=== PATIENT | male | born 1940 | race Hispanic/Latino ===

== ENCOUNTER 2025-02-12 15:38 | Inpatient (IN) | payer BC, SELFPAY ==
--- NOTE | ~2025-02-12 | XR_ITS ---
EXAMINATION: XR chest 1V portable Exam Date/Time: 02/12/2025 15:50 CDT HISTORY: pre-op Comparison: None. RESULT: Lines, tubes, and devices: None. Lungs and pleura: Mild senescent/emphysematous change, otherwise clear. Cardiomediastinal silhouette: Stable. Other: No acute osseous or upper abdominal finding. IMPRESSION: No acute cardiopulmonary process. Reviewed, dictated and finalized at location K.
--- NOTE | ~2025-02-12 | XR_ITS ---
EXAM: XR foot LT min 3V DATE: 02/12/2025 16:05 HISTORY: Gangrenous toes, 1st 2nd toe. . COMPARISON: None available. FINDINGS: Normal mineralization. No fracture or dislocation. No lytic or blastic lesion. Joint space s are maintained. No erosion or periosteal change. Soft tissue defect over the tip of the great toe. IMPRESSION: No acute osseous finding in the left foot. Reviewed, dictated and finalized at location K.
--- NOTE | ~2025-02-12 | US_ITS ---
EXAMINATION: US venous doppler [facility] DATE: 02/13/2025 21:46 INDICATION: lower extremity edema, pain, and swelling. TECHNIQUE: Grayscale images without and with compression and Doppler images of the bilateral lower ex tremity veins were obtained. COMPARISON: None FINDINGS: Exam limited by significant pain experienced during the examination. The peroneal and posterior tibial veins were noncompressible and no flow was detected. The right comm on femoral vein, profunda (deep) femoral vein, femoral vein, popliteal vein, gastrocnemius vein, and greater saphenous vein are patent. The peroneal and posterior tibial veins are noncompressible and no flow is detected. The left common femoral vein, profunda (deep) femoral vein, femoral vein, popliteal vein,, gastrocnemius vein, and g reater saphenous vein are patent. 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 Incidental note of possible SFA severe stenosis, with tardus parvus waveform in the left popliteal ar naren, and no flow detected in the left posterior tibial artery. Recommend CT angiography of the left lower extremity for further evaluation. Results reported telephonically to Cm Phillips RN by Dr. Morris at 10:14 PM on 02/13/2025. Reviewed, dictated and finalized at location K. 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 Incidental note of possible SFA severe stenosis, with tardus parvus waveform in the left popliteal artery, and no flow detected in the left posterior tibial a rtery. Recommend CT angiography of the left lower extremity for further evaluat ion. Results reported telephonically to Cm Phillips RN by Dr. Morris at 10:14 PM on 02/13/2025.
--- NOTE | ~2025-02-12 | CT_ITS ---
CLINICAL INDICATION: Peripheral arterial disease. COMPARISON: None. TECHNIQUE: Computed tomography angiography (CTA) of the bilateral iliac arteries with left lower extr emity runoff was performed with 100 mL Omnipaque-350 intravenous contrast timed to evaluate the abdom inal aorta, mesenteric and peripheral lower extremity vasculature. Coronal maximum intensity projection 3D-reconstructions were created by the technologist. The dose-length product (DLP) was 462.93 mGy-cm. Automated exposure control and iterative reconstruction technique were employed. FINDINGS/OBSERVATIONS: Gastrointestinal tract: Colonic diverticulosis within the sigmoid colon. Vasculature: The visualized portion of the thoracic aorta is nonaneurysmal. The abdominal aorta is nonaneurysmal without ductal dilatation. The celiac origin is patent and demonstrates conventional anatomy. The superior mesenteric artery is also patent, with only mild atherosclerosis. The bilateral renal arteries are patent, and otherwise unremarkable. The left external iliac artery is patent without calcified atherosclerosis within the pelvis. The left internal iliac artery is diminutive in caliber and demonstrates significant calcified athero sclerotic disease. The left common femoral artery is patent without aneurysmal dilatation or significant stenosis. The left superficial femoral artery and profunda femoral artery are both patent at their origins. The superficial femoral artery is diminutive, and occluded just after its takeoff with multiple colla terals within the proximal and mid thigh. A femoral popliteal bypass graft is identified, without demonstrable flow. Reconstitution distal to the level of the femoral popliteal graft via geniculate collaterals in the k nee and distal thigh. Single vessel runoff is identified within the left calf as the anterior tibial artery which is occluded approximately 10.6 cm above the talus. Reconstitution of the posterior tibial artery at the level of the insertion of the Achilles tendon wh ich provides distal flow into the left foot. Dorsalis pedis is fed through the reconstitution from the superficial system in the medial left calf, into the left foot. Pelvic structures: The bladder is only minimally distended, and otherwise unremarkable. The prostate gland is enlarged and heterogeneous. IMPRESSION: No significant left-sided inflow disease. 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 Single vessel runoff into the left calf with collateralized two-vessel runoff into the left foot. Reviewed, dictated and finalized at location A. IMPRESSION: No significant left-sided inflow disease. 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 Single vessel runoff into the left calf with collateralized two-vessel runoff i nto the left foot.
--- NOTE | 2025-02-12 15:47 | ECG_ITS ---
Test Date: 2025-02-12 16:33:14 Measurements Intervals [place] Rate: 79 P: 54 OH: 177 QRS: -8 QRSD: 90 T: 16 QT: 339 QTc: 391 Interpretive Statements SINUS RHYTHM EARLY PRECORDIAL R/S TRANSITION BORDERLINE T WAVE ABNORMALITY- INFERIOR LEADS BASELINE ARTIFACT- I, II, III, AVR, AVL, AVF, V1-V6 BORDERLINE ECG No previous ECG available for comparison Electronically Signed On 02-12-2025 19:50:21 CDT by Bill Feliciano D.O.
[2025-02-12 16:08] VITALS: BP 159/62; PULSE 80; RESP 14; TEMP 36.7; O2SAT 100
--- NOTE | 2025-02-12 16:26 | ED_ITS ---
HPI - General Adult General Chief complaint: Wound/Laceration Stated complaint: Left toe pain Time Seen by Provider: 02/12/25 15:42 History of Present Illness HPI narrative: This is an 85-year-old insulin-dependent diabetic Monegasque-speaking male presenting toe pain. Patient says that his great toe nail was ripped off about a month ago. Since then it has become more more painful. It is now black and purulent with discoloration going up with his foot. He denies any other complaints such as fevers chills nausea vomiting diarrhea. He has been taking his insulin as directed. Related Data Allergies Allergy/AdvReac Type Severity Reaction Status Date / Time No Known Allergies Allergy Verified 02/12/25 16:06 Exam 2 Narrative: APPEARANCE: No apparent distress. Head: atraumatic. EYES: EOMI, NOSE: Atraumatic NECK: Trachea midline RESPIRATORY: No increased rate of breathing clear to auscultation CARDIOVASCULAR: RRR, no peripheral edema ABDOMINAL: Non-distended MUSCULOSKELETAl: No obvious deformities NEURO: Alert. Moving 4/4 extremities SKIN:: Gangrenous necrotic tissue in between the 1st and 2nd toe of the left foot. Discoloration reaching up to mid foot. PSYCHIATRIC: Normal affect Course Vital Signs Vital signs: Vital Signs Temperature 98.1 F 02/12/25 16:08 Pulse Rate 80 02/12/25 16:08 Respiratory Rate 14 02/12/25 16:08 Blood Pressure 159/62 H 02/12/25 16:08 Pulse Oximetry 100 02/12/25 16:08 Temperature 98.1 F 02/12/25 16:08 Pulse Rate 80 02/12/25 16:08 Respiratory Rate 14 02/12/25 16:08 Blood Pressure 159/62 H 02/12/25 16:08 Pulse Oximetry 100 02/12/25 16:08 Medical Decision Making [facility] Narrative Medical decision making narrative: -Course: 85-year-old male infected with diabetic foot ulcer. Started on antibiotics. Given fluid resuscitation. Lab work and cultures obtained. Patient be admitted for management of his diabetic foot ulcer. -DDX includes but is not limited to: Sepsis gangrene osteomyelitis -Co-morbidities complicating care: Insulin-dependent diabetes Vital Signs Vital Signs: Vital Signs Temperature 98.1 F 02/12/25 16:08 Pulse Rate 80 02/12/25 16:08 Respiratory Rate 14 02/12/25 16:08 Blood Pressure 159/62 H 02/12/25 16:08 Pulse Oximetry 100 02/12/25 16:08 Temperature 98.1 F 02/12/25 16:08 Pulse Rate 80 02/12/25 16:08 Respiratory Rate 14 02/12/25 16:08 Blood Pressure 159/62 H 02/12/25 16:08 Pulse Oximetry 100 02/12/25 16:08 Lab Data 02/12/25 16:21 02/12/25 16:21 Labs: Lab Results 02/12/25 02/12/25 02/12/25 Range/Units 16:11 16:21 16:21 WBC 10.2 H (4.5-10.0) K/mm3 RBC 3.95 L (4.6-6.20) M/mm3 Hgb 11.6 L (14.0-18.0) g/dL Hct 35.9 L (42.0-52.0) % MCV 90.9 (80-100) fl MCH 29.4 (26-34) pg MCHC 32.3 (32-36) g/dl RDW 13.1 (11.5-14.5) % Plt Count 338 (150-375) k/mm3 MPV 8.4 (7.4-10.4) fl Immature Gran % (Auto) 0.4 (0-0.5) % Neut % (Auto) 71.0 (45.5-73.1) % Lymph % (Auto) 15.8 L (18.3-44.2) % [place] % (Auto) 7.3 (2.6-8.5) % Eos % (Auto) 5.0 H (0-4.4) % Baso % (Auto) 0.5 (0.2-1.2) % Lymph # (Auto) 1.61 (0.9-3.2) K/mm3 [place] # (Auto) 0.7 H (0.1-0.6) K/mm3 Eos # (Auto) 0.5 H (0-0.3) K/mm3 Baso # (Auto) 0.1 (0.0-0.1) K/mm3 Abs Immat Gran (auto) 0.04 H (0.00-0.031) K/mm3 Absolute Neuts (auto) 7.2 H (1.3-6.7) K/mm3 Absolute Nucleated RBC 0.000 (0.0-0.012) K/mm3 Nucleated RBC % 0.0 (0.0-0.2) % PT 14.9 H (11.1-14.7) Seconds INR 1.2 APTT 40.4 H (22.3-36.8) Seconds Sodium 138 (137-145) mmol/L Potassium 4.5 (3.4-5.0) mmol/L Chloride 105 (98-107) mmol/L Carbon Dioxide 24 (22-30) mmol/L Anion Gap 9 (4-12) mmol/L BUN 22 H (9-20) mg/dL Creatinine 1.13 (0.7-1.3) mg/dL Estim Creat Clear Calc 41 ml/min Estimated GFR > 60 (59 - ) Glucose 146 H (65-110) mg/dL POC Capillary Glucose 168 H (65-105) mg/dl Lactic Acid 0.9 (0.7-2.0) mmol/L Calcium 8.7 (8.4-10.2) mg/dL Magnesium 2.2 Cancelled (1.6-2.3) mg/dL Total Bilirubin 0.3 (0.2-1.3) mg/dL AST 25 (17-59) U/L ALT 23 (6-50) U/L Alkaline Phosphatase 80 (38-126) U/L C-Reactive Protein 5.1 H (<1.0) mg/dL Total Protein 7.8 (6.3-8.2) g/dL Albumin 3.6 (3.5-5.1) g/dL Urine Color (Yellow) Urine Appearance (Clear) Urine pH (5.0-9.0) Ur Specific [place] (1.001-1.035) Urine Protein (Negative) mg/dL Urine Glucose (UA) (Negative) mg/dL Urine Ketones (Negative) mg/dL Ur Blood (Man) (Negative) Urine Nitrate (Negative) Urine Bilirubin (Negative) Urine Urobilinogen (<2.0) mg/dL Leukocyte Esterase Rfl (Negative) WILD/UL Influenza A (RT-PCR) Influenza B (RT-PCR) RSV (RT-PCR) SARS-CoV-2 RNA (RT-PCR) 02/12/25 02/12/25 Range/Units 16:44 16:47 WBC (4.5-10.0) K/mm3 RBC (4.6-6.20) M/mm3 Hgb (14.0-18.0) g/dL Hct (42.0-52.0) % MCV (80-100) fl MCH (26-34) pg MCHC (32-36) g/dl RDW (11.5-14.5) % Plt Count (150-375) k/mm3 MPV (7.4-10.4) fl Immature Gran % (Auto) (0-0.5) % Neut % (Auto) (45.5-73.1) % Lymph % (Auto) (18.3-44.2) % [place] % (Auto) (2.6-8.5) % Eos % (Auto) (0-4.4) % Baso % (Auto) (0.2-1.2) % Lymph # (Auto) (0.9-3.2) K/mm3 [place] # (Auto) (0.1-0.6) K/mm3 Eos # (Auto) (0-0.3) K/mm3 Baso # (Auto) (0.0-0.1) K/mm3 Abs Immat Gran (auto) (0.00-0.031) K/mm3 Absolute Neuts (auto) (1.3-6.7) K/mm3 Absolute Nucleated RBC (0.0-0.012) K/mm3 Nucleated RBC % (0.0-0.2) % PT (11.1-14.7) Seconds INR APTT (22.3-36.8) Seconds Sodium (137-145) mmol/L Potassium (3.4-5.0) mmol/L Chloride (98-107) mmol/L Carbon Dioxide (22-30) mmol/L Anion Gap (4-12) mmol/L BUN (9-20) mg/dL Creatinine (0.7-1.3) mg/dL Estim Creat Clear Calc ml/min Estimated GFR (59 - ) Glucose (65-110) mg/dL POC Capillary Glucose (65-105) mg/dl Lactic Acid (0.7-2.0) mmol/L Calcium (8.4-10.2) mg/dL Magnesium (1.6-2.3) mg/dL Total Bilirubin (0.2-1.3) mg/dL AST (17-59) U/L ALT (6-50) U/L Alkaline Phosphatase (38-126) U/L C-Reactive Protein (<1.0) mg/dL Total Protein (6.3-8.2) g/dL Albumin (3.5-5.1) g/dL Urine Color Yellow (Yellow) Urine Appearance Clear (Clear) Urine pH 6.5 (5.0-9.0) Ur Specific [place] 1.018 (1.001-1.035) Urine Protein Negative (Negative) mg/dL Urine Glucose (UA) 3+ H (Negative) mg/dL Urine Ketones Negative (Negative) mg/dL Ur Blood (Man) Negative (Negative) Urine Nitrate Negative (Negative) Urine Bilirubin Negative (Negative) Urine Urobilinogen 1.0 (<2.0) mg/dL Leukocyte Esterase Rfl Negative (Negative) WILD/UL Influenza A (RT-PCR) Pending Influenza B (RT-PCR) Pending RSV (RT-PCR) Pending SARS-CoV-2 RNA (RT-PCR) Pending Critical Care Time Critical Care Time Critical Care Time: Yes Total Critical Care Time: 35 Discharge Plan Discharge Clinical Impression: Diabetic foot ulcer Patient Disposition: Home Condition: Stable Instructions: Antibiotic Form Patient Language: Kyrgyz Follow-up/Referrals: Marvin Hill MD [Primary Care Provider] -
[2025-02-12 16:36] LABS: Hematocrit 35.9 % (42.0-52.0); Hemoglobin 11.6 g/dL (14.0-18.0); Immature Granulocyte Percent A 0.4 % (0-0.5); Lymphocytes Absolute Auto 1.61 K/mm3 (0.9-3.2); Mean Corpuscular HGB Conc 32.3 g/dl (32-36); Mean Corpuscular Hemoglobin 29.4 pg (26-34); Mean Corpuscular Volume 90.9 fl (80-100); Nucleated Red Blood Cells Absolute Auto 0.000 K/mm3 (0.0-0.012); Nucleated Red Blood Cells Perc 0.0 % (0.0-0.2); Platelet Count Result 338 k/mm3 (150-375); Red Blood Count 3.95 M/mm3 (4.6-6.20); White Blood Count 10.2 K/mm3 (4.5-10.0)
[2025-02-12 16:47] LABS: INR 1.2; Prothrombin Time 14.9 Seconds (11.1-14.7)
[2025-02-12 16:48] LABS: Partial Thromboplastin Time 40.4 Seconds (22.3-36.8)
[2025-02-12 16:49] LABS: Alanine Aminotransferase 23 U/L (6-50); Albumin Level 3.6 g/dL (3.5-5.1); Alkaline Phosphatase 80 U/L (38-126); Anion Gap 9 mmol/L (4-12); Aspartate Amino Transferase 25 U/L (17-59); Bilirubin,Total 0.3 mg/dL (0.2-1.3); Blood Urea Nitrogen 22 mg/dL (9-20); Calcium 8.7 mg/dL (8.4-10.2); Carbon Dioxide 24 mmol/L (22-30); Chloride 105 mmol/L (98-107); Estimated CRCL calculation 41 ml/min; Estimated Glomerular Filt Rate > 60; Glucose 146 mg/dL (65-110); Magnesium 2.2 mg/dL (1.6-2.3); Potassium 4.5 mmol/L (3.4-5.0); Sodium 138 mmol/L (137-145); Total Protein 7.8 g/dL (6.3-8.2)
[2025-02-12 16:51] LABS: CRP 5.1 mg/dL (<1.0)
[2025-02-12] MEDS: LACTATED RINGERS 1,000 ML 999 ML IV CONT ×2 (16:55)
[2025-02-12] MEDS: CEFEPIME 2 GM/NS 50 ML 2 GM/50 ML BAG IVPB (16:56)
[2025-02-12 16:59] LABS: Add Urine Microscopic? NO; Appearance Urine Clear (Clear); Glucose Urine UA 3+ mg/dL (Negative); Leukocyte Esterase Ur Negative LEU/UL (Negative); Nitrate Urine Negative (Negative); Specific Grav Ur 1.018 (1.001-1.035)
[2025-02-12] MEDS: metroNIDAZOLE 500 MG/ISO 100ML 500 MG/100 ML BAG 100 MG IVPB ×2 (17:25→23:07)
[2025-02-12 17:34] VITALS: BP 148/60; PULSE 78; RESP 14; O2SAT 100
[2025-02-12 17:46] LABS: Influenza A QL RT-PCR Negative (Negative); Influenza B QL RT-PCR Negative (Negative); RSV RNA, RT-PCR Negative (Negative); SARS-CoV-2 RNA PCR Negative (Negative)
[2025-02-12] MEDS: VANCOMYCIN 1,750 MG/NS 500 ML BAG 250 MG IVPB (17:50)
[2025-02-12 18:00] VITALS: BP 142/63; PULSE 78; RESP 15; O2SAT 100
--- NOTE | 2025-02-12 18:45 | PC.NURSE ---
Attempted to call floor for questions about pt before transfer to [facility]. RN not available. This RN let them know they can call back with any questions. ED charge made aware.
--- NOTE | 2025-02-12 19:27 | PM.IMHP ---
H&P: HPI History of Present Illness Date/Time: 02/12/25 21:27 Chief Complaint: Left foot wound, diabetic gangrene Narrative: This is an 85-year-old male patient with a history of diabetes hypertension hyperlipidemia who lives at home with family is admitted to the hospital for necrotic left great toe with gangrenous diabetic foot infection. Patient reports that about a month ago he tried to remove part of the toenail and since then he has had increased swelling pain and eventually color change that has continued to worsen steadily. Patient reported to nursing staff that blood sugar has been under control. Patient and family are not aware of what medications patient takes but he reportedly gets a pill for hypertension, a pill for hyperlipidemia, and a pill for diabetes at [facility] in [place]. No one knows the name or dosage of the medications. Lab work shows white blood cell count of 10.2, CRP 5.1, ESR 97 and procalcitonin 0.1. Hemoglobin A1c was 6.4 and creatinine clearance of 41 with estimated GFR greater than 60. Patient has no prior labs on file for comparison. Blood cultures have been drawn and are pending. Patient was initiated on cefepime Flagyl and vancomycin in the emergency department which will be continued. General surgery was consulted by the emergency department, Dr. Arreola will see patient tomorrow. Expect patient to go to OR for partial or full left foot amputation. Poor vascular flow likely due to history of DM, HTN and HLD. Exam and HPI completed with solution sales senior executive on the mobile device screen during entirety of visit. No family present at time I saw patient. Review of Systems Review of Systems: All systems reviewed & are unremarkable except as noted in HPI and below [facility] Past Medical History Medical History education faculty member needed Insulin dependent diabetes mellitus HLD (hyperlipidemia) HTN (hypertension) Social History Social History Smoking status: Never smoker Second hand tobacco smoke exposure: No Alcohol intake: never Substance use: never Substance use type: does not use Do You Feel Safe in your Home?: Yes Lack of Transportation: No Lack of Food: Sometimes True Current Housing: I Have Housing Concerned About Future Housing: No Difficulty Paying Gas/Electric Bills: No Difficulty Paying for Meds: No Currently Unemployed: No Education: High School Diploma/GED Difficulty w/ Childcare or Family Care: No Spiritual care concerns: No Meds Home Medications and Allergies Allergies Allergy/AdvReac Type Severity Reaction Status Date / Time No Known Allergies Allergy Verified 02/12/25 16:06 Vital Signs Vital Signs - 24 hr 02/12/25 16:08 02/12/25 17:34 02/12/25 18:00 Temperature 36.7 C Pulse Rate 80 78 78 Respiratory Rate 14 14 15 Blood Pressure 159/62 H 148/60 H 142/63 H Pulse Oximetry 100 100 100 Exam Narrative: GENERAL: Awake alert oriented, appears stated age, no acute distress HEAD: Normocephalic, atraumatic. ENT:? Mucous membranes moist. CHEST: Clear to auscultation.? No respiratory distress. HEART: Regular rate and rhythm. ? Normal radial pulses. ABDOMEN: Soft, nontender, nondistended. EXTREMITIES: Bilateral feet with erythema and mild swelling, left great toe black and necrotic with green gangrenous exudate between the great toe and 2nd toe SKIN: Warm dry normal color NEURO: Alert and oriented x3. Responds appropriately via petroleum blending plant operator, follows commands, no motor deficits evident H&P: Results Labs Labs: Short CBC 02/12/25 Range/Units 16:21 WBC 10.2 H (4.5-10.0) K/mm3 Hgb 11.6 L (14.0-18.0) g/dL Hct 35.9 L (42.0-52.0) % Plt Count 338 (150-375) k/mm3 BMP 02/12/25 16:21 Sodium 138 Potassium 4.5 Chloride 105 Carbon Dioxide 24 BUN 22 H Creatinine 1.13 Glucose 146 H Calcium 8.7 Liver Function 02/12/25 Range/Units 16:21 Total Bilirubin 0.3 (0.2-1.3) mg/dL AST 25 (17-59) U/L ALT 23 (6-50) U/L Alkaline Phosphatase 80 (38-126) U/L Albumin 3.6 (3.5-5.1) g/dL Urine 02/12/25 Range/Units 16:47 Urine Color Yellow (Yellow) Urine Appearance Clear (Clear) Urine pH 6.5 (5.0-9.0) Ur Specific [place] 1.018 (1.001-1.035) Urine Protein Negative (Negative) mg/dL Urine Glucose (UA) 3+ H (Negative) mg/dL Pulse Oximetry SpO2 results: 100% on room air Attestation: I personally reviewed and interpreted this pulse oximetry as follows: Interpretation: no need for supplemental oxygenation at this time ECG Attestation: I personally reviewed and interpreted this ECG as follows: ECG completion date: 02/12/25 ECG completion time: 16:33 Prior ECG tracings: not available for review Interpretation: Sinus rhythm rate of 79 LA interval 177 QRS duration 90 QTC 391 QRS axis -8? no STEMI Imaging Left foot x-ray: Radiologist's impression: EXAM: XR foot LT min 3V DATE: 02/12/2025 16:05 HISTORY: Gangrenous toes, 1st 2nd toe. . COMPARISON: None available. FINDINGS: Normal mineralization. No fracture or dislocation. No lytic or blastic lesion. Joint spaces are maintained. No erosion or periosteal change. Soft tissue defect over the tip of the great toe. IMPRESSION: No acute osseous finding in the left foot. Reviewed, dictated and finalized at location K. Chest x-ray: Radiologist's impression: EXAMINATION: XR chest 1V portable Exam Date/Time: 02/12/2025 15:50 CDT HISTORY: pre-op Comparison: None. RESULT: Lines, tubes, and devices: None. Lungs and pleura: Mild senescent/emphysematous change, otherwise clear. Cardiomediastinal silhouette: Stable. Other: No acute osseous or upper abdominal finding. IMPRESSION: No acute cardiopulmonary process. Reviewed, dictated and finalized at location K. Assessment and Plan Assessment and plan (1) Diabetic foot ulcer: Qualifiers: Diabetes mellitus type: type 2 Diabetic foot ulcer location: toe Laterality: left Non-pressure ulcer stage: with other severity Qualified Code(s): E11.621 - Type 2 diabetes mellitus with foot ulcer; L97.528 - Non-pressure chronic ulcer of other part of left foot with other specified severity Code(s): E11.621 - Type 2 diabetes mellitus with foot ulcer; L97.509 - Non-pressure chronic ulcer of other part of unspecified foot with unspecified severity Status: Acute Assessment and Plan: -Gangrenous diabetic foot wound from great toenail source with involvement of great toe and space between first and second toes -All toes red and swollen, great toe is black -Patient states worsened foot over past 1 month or so -Surgery consulted, will see on 02/13 -IV cefepime, metronidazole and vancomycin started in ER and will continue -Painful portions of foot wound for patient, pain medication ordered -Anticipate plan to go to OR on 02/13/25 with general surgery -MRI ordered to assess for osteomyelitis nearby as well (2) Insulin dependent diabetes mellitus: Status: Chronic Assessment and Plan: -Ordered A1c and ACHS fingerstick glucose with SSI -Diabetic diet, NPO at midnight for OR on 02/13 -Patient actually on an oral medication rather than insulin, unknown name/dose at this time, gets meds at [facility] (there are two) (3) HTN (hypertension): Code(s): I10 - Essential (primary) hypertension Status: Acute Assessment and Plan: -On unknown medication/unknown dose for HTN, gets meds at [facility] in [place] (4) HLD (hyperlipidemia): Code(s): E78.5 - Hyperlipidemia, unspecified Status: Acute Assessment and Plan: -On unknown medication/unknown dose for HLD, need to call pharmacy to find out for Med Rec purposes (5) education faculty member needed: Code(s): Z75.8 - Other problems related to medical facilities and other health care Status: Acute Assessment and Plan: -Croatian speaking, does not speak/understand more than a few words of Rwandan, petroleum blending plant operator services required -Patient cannot read/write in Rwandan or Croatian Plan -Medication Reconciliation not possible as pharmacy is closed and patient/family do not know what medications he takes -Surgery to see patient on 02/13, anticipate partial foot amputation -MRI ordered but may not be needed, depending on General Surgery plan Quality VTE Prophylaxis VTE prophylaxis: pharmacologic ordered (Heparin) Total time spent on this patient encounter was 112 minutes. Hospitalist [facility] Advance Care Plan I have confirmed that the patient's Advanced Care Plan is present, code status is documented, or surrogate decision maker is listed in patient medical record.: Yes Medication Reconciliation I have utilized all available resources to obtain, update and review the patients current medications (includes all prescriptions, OTC, herbals, cannabis, and nutritional supplements).: No The patient is not eligible for med reconciliation; the patient is in a emergent medical situation where delaying treatment would jeopardize the patients health.: Yes
[2025-02-12 19:50] VITALS: BMI 22.2
[2025-02-12 20:07] LABS: Hemoglobin A1C 6.4 % (<5.7)
[2025-02-12 20:20] VITALS: BP 147/58; PULSE 68; RESP 20; TEMP 36; O2SAT 100
[2025-02-12 20:49] LABS: CRP 4.6 mg/dL (<1.0)
[2025-02-12 21:01] LABS: Procalcitonin 0.1 ng/mL
[2025-02-12] MEDS: LACTATED RINGERS 1,000 ML 75 ML IV CONT (21:04)
[2025-02-12] MEDS: MORPHINE SULFATE (*CRX) 4 MG/ML INJ IV PUSH (21:38)
[2025-02-13 04:30] VITALS: BP 143/61; PULSE 58; RESP 16; TEMP 36.3; O2SAT 100
[2025-02-13 05:57] LABS: Hematocrit 33.0 % (42.0-52.0); Hemoglobin 10.6 g/dL (14.0-18.0); Immature Granulocyte Percent A 0.4 % (0-0.5); Lymphocytes Absolute Auto 1.43 K/mm3 (0.9-3.2); Mean Corpuscular HGB Conc 32.1 g/dl (32-36); Mean Corpuscular Hemoglobin 29.3 pg (26-34); Mean Corpuscular Volume 91.2 fl (80-100); Nucleated Red Blood Cells Absolute Auto 0.000 K/mm3 (0.0-0.012); Nucleated Red Blood Cells Perc 0.0 % (0.0-0.2); Platelet Count Result 335 k/mm3 (150-375); Red Blood Count 3.62 M/mm3 (4.6-6.20); White Blood Count 9.8 K/mm3 (4.5-10.0)
[2025-02-13] MEDS: CEFEPIME 1 GM/NS 50 ML 1 GM/50 ML BAG IVPB ×2 (06:24→18:10)
[2025-02-13 06:26] LABS: Procalcitonin 0.1 ng/mL
[2025-02-13] MEDS: metroNIDAZOLE 500 MG/ISO 100ML 500 MG/100 ML BAG 100 MG IVPB ×3 (06:30→20:49)
[2025-02-13 06:46] LABS: Alanine Aminotransferase 18 U/L (6-50); Albumin Level 3.3 g/dL (3.5-5.1); Alkaline Phosphatase 64 U/L (38-126); Anion Gap 7 mmol/L (4-12); Aspartate Amino Transferase 19 U/L (17-59); Bilirubin,Total 0.3 mg/dL (0.2-1.3); Blood Urea Nitrogen 17 mg/dL (9-20); CRP 4.3 mg/dL (<1.0); Calcium 8.4 mg/dL (8.4-10.2); Carbon Dioxide 23 mmol/L (22-30); Chloride 107 mmol/L (98-107); Estimated CRCL calculation 47 ml/min; Estimated Glomerular Filt Rate > 60; Glucose 140 mg/dL (65-110); Magnesium 1.9 mg/dL (1.6-2.3); Potassium 4.6 mmol/L (3.4-5.0); Sodium 137 mmol/L (137-145); Total Protein 7.0 g/dL (6.3-8.2)
--- NOTE | 2025-02-13 08:24 | P.PNIM_ITS ---
Progress Note: A&P Assessment and Plan (1) Diabetic foot ulcer: Qualifiers: Diabetes mellitus type: type 2 Diabetic foot ulcer location: toe Laterality: left Non-pressure ulcer stage: with other severity Qualified Code(s): E11.621 - Type 2 diabetes mellitus with foot ulcer; L97.528 - Non- pressure chronic ulcer of other part of left foot with other specified severity Code(s): E11.621 - Type 2 diabetes mellitus with foot ulcer; L97.509 - Non-pressure chronic ulcer of other part of unspecified foot with unspecified severity Status: Acute Assessment and Plan: -Gangrenous diabetic foot wound from great toenail source with involvement of great toe and space between first and second toes -All toes red and swollen, great toe is black -Patient states worsened foot over past 1 month or so -Surgery consulted, will see on 02/13 -IV cefepime, metronidazole and vancomycin started in ER and will continue -Painful portions of foot wound for patient, pain medication ordered -Anticipate plan to go to OR on 02/13/25 with general surgery -MRI ordered to assess for osteomyelitis nearby as well 02/13: - General surgery consulted and possible amputation pending further evaluation with MRI. Maintain NPO at this time. - On vancomycin/cefepime/flagyl - day 2. (2) Insulin dependent diabetes mellitus: Status: Chronic Assessment and Plan: -Ordered A1c and ACHS fingerstick glucose with SSI -Diabetic diet, NPO at midnight for OR on 02/13 -Patient actually on an oral medication rather than insulin, unknown name/dose at this time, gets meds at [facility] (there are two) 02/13: - A1c 6.4. - NPO currently, will change insulin to regular, q6h scheduled sliding scale. (3) HTN (hypertension): Code(s): I10 - Essential (primary) hypertension Status: Acute Assessment and Plan: -On unknown medication/unknown dose for HTN, gets meds at [facility] in [place] 02/13: - Stable 140s/60s - awaiting med rec from outside pharmacy. (4) HLD (hyperlipidemia): Code(s): E78.5 - Hyperlipidemia, unspecified Status: Acute Assessment and Plan: -On unknown medication/unknown dose for HLD, need to call pharmacy to find out for Med Rec purposes 02/13: - Awaiting med rec from outside pharmacy. (5) stripper and taper needed: Code(s): Z75.8 - Other problems related to medical facilities and other health care Status: Acute Assessment and Plan: -Russian speaking, does not speak/understand more than a few words of [place], figure refinisher and repairer services required -Patient cannot read/write in [place] or Russian 02/13: - Strategy Analyst device at bedside, patient able to utilize well. Plan -Medication Reconciliation not possible as pharmacy is closed and patient/family do not know what medications he takes -Surgery to see patient on 02/13, anticipate partial foot amputation -MRI ordered but may not be needed, depending on General Surgery plan 02/13: Susan Elena is n 85 year old male with PMH HTN and DM presenting with one month history of worsening left great toe wound. Appearance of eschar/gangrene on examination and surgery is consulted. - Per nursing, patient uses multiple pharmacies and family will be bringing his actual medications by for review. I have encouraged nursing to also request any POLST forms or POA paperwork that is available. Time Spent With Patient Time with patient: 15 - 25 minutes Subjective Date/time seen: 02/13/25 08:24 Interval history: Utilizing figure refinisher and repairer, visit conducted this am. Susan states pain manageable, not severe. Denies concerns or new complaints. Understands need for surgical consultation. Review of Systems Review of Systems: All systems reviewed & are unremarkable except as noted in HPI and below Exam Narrative: GENERAL APPEARANCE: Appears to be in no acute distress. HEAD: normocephalic atraumatic ENT: Hearing grossly intact, no nasal discharge NECK: Neck supple, trachea midline. CARDIAC: Normal S1/S2. Rhythm is regular. No murmurs, rubs, or gallops. No cyanosis or pallor. Extremities are warm and well perfused. LUNGS: Clear to auscultation without rales, rhonchi, wheezing or diminished breath sounds. Respirations even and unlabored. ABDOMEN: BS positive x 4 quadrants. Soft, nondistended, nontender. No guarding or rebound. PERIPHERAL VASCULAR: +1 blle edema. Lower extremities slightly cool. NEURO: Follows commands. No focal deficits. SKIN: Left great toe with eschar covering the medial surface with drainage from the interdigital space. There is erythema extending to the ankle. Odiferous. PSYCH: Stable, no paranoia or delusional thinking. Objective Data Vital Signs Vital Signs: Vital Signs - 24 hr 02/12/25 16:08 02/12/25 17:34 02/12/25 18:00 Temperature 98.1 F Pulse Rate 80 78 78 Respiratory Rate 14 14 15 Blood Pressure 159/62 H 148/60 H 142/63 H Pulse Oximetry 100 100 100 Oxygen Delivery 02/12/25 20:00 02/12/25 20:20 02/13/25 04:30 Temperature 96.8 F L 97.3 F L Pulse Rate 68 58 L Respiratory Rate 20 16 Blood Pressure 147/58 H 143/61 H Pulse Oximetry 100 100 Oxygen Delivery Room Air Intake/Output Intake/Output: Intake & Output 02/10/25 02/11/25 02/12/25 02/13/25 23:59 23:59 23:59 23:59 Intake Total 2150 400 Output Total 900 Balance 2150 -500 Meds/Results Medications: Active Medications Generic Name Dose Route Start Last Admin Trade Name Freq PRN Reason Stop Dose Admin Acetaminophen 650 mg 02/12/25 21:13 Acetaminophen 325 Mg Tablet PO Q4H PRN Mild Pain (1-3) or Fever Hydrocodone Bitart/Acetaminophen 1 tab 02/12/25 21:13 Hydrocodone/Acetaminophen (*Crx) 5-325 Mg Tablet PO Q4H PRN Pain Rated 4-6 Dextrose 12.5 gm 02/12/25 18:53 Dextrose 50% 25 Gm/50 Ml Syringe IV PUSH PRN PRN Hypoglycemia Protocol Glucagon 1 mg 02/12/25 18:53 Glucagon For Inj 1 Mg Vial IM PRN PRN Hypoglycemia Protocol Glucose 15 gm 02/12/25 18:53 Glucose Oral Gel 15 Gm Of Glucse In 37.5 Gm Tube PO PRN PRN Hypoglycemia Protocol Metronidazole 500 mg in 100 mls @ 100 mls/hr 02/12/25 23:00 02/13/25 06:30 Flagyl 500 Mg/Iso Soln 100 Ml IVPB 100 mls/hr Q8HR BINA Administration Lactated Ringer's 1,000 mls @ 75 mls/hr 02/12/25 17:35 02/12/25 21:04 Lr - Lactated Ringers Iv IV CONT 75 mls/hr .[id number] BINA Administration Dextrose 1,000 mls @ 100 mls/hr 02/12/25 18:53 Dextrose 5% 1,000 Ml IVPB PRN PRN Hypoglycemia Protocol Cefepime HCl 1 gm in 50 mls @ 100 mls/hr 02/13/25 05:00 02/13/25 06:24 Maxipime 1 Gm/Ns 50 Ml IVPB 100 mls/hr Q12H BINA Administration Vancomycin HCl 1,250 mg in 250 mls @ 166.667 mls/hr 02/13/25 18:00 Vancomycin 1,250 Mg/Ns 250 Ml IVPB Q24H BINA Insulin Aspart 2 - 5 units 02/13/25 08:00 Insulin Aspart (*Bkc) 100 Units/Ml SUB-Q TIDWM BINA Protocol Morphine Sulfate 2 mg 02/12/25 21:13 Morphine Sulfate (*Crx) 2 Mg/Ml Inj IV PUSH Q4H PRN Pain Rated 7-10 Radiology Results: ITS Impressions Chest X-Ray 02/12/25 16:16 IMPRESSION: No acute cardiopulmonary process. Foot X-Ray 02/12/25 16:17 IMPRESSION: No acute osseous finding in the left foot. Labs Labs: Laboratory Results - last 24 hr 02/12/25 02/12/25 02/12/25 16:11 16:21 16:21 WBC 10.2 H RBC 3.95 L Hgb 11.6 L Hct 35.9 L MCV 90.9 MCH 29.4 MCHC 32.3 RDW 13.1 Plt Count 338 MPV 8.4 Immature Gran % (Auto) 0.4 Neut % (Auto) 71.0 Lymph % (Auto) 15.8 L [place] % (Auto) 7.3 Eos % (Auto) 5.0 H Baso % (Auto) 0.5 Lymph # (Auto) 1.61 [place] # (Auto) 0.7 H Eos # (Auto) 0.5 H Baso # (Auto) 0.1 Abs Immat Gran (auto) 0.04 H Absolute Neuts (auto) 7.2 H Absolute Nucleated RBC 0.000 Nucleated RBC % 0.0 ESR 97 H PT 14.9 H INR 1.2 APTT 40.4 H Sodium 138 Potassium 4.5 Chloride 105 Carbon Dioxide 24 Anion Gap 9 BUN 22 H Creatinine 1.13 Estim Creat Clear Calc 41 Estimated GFR > 60 Glucose 146 H POC Capillary Glucose 168 H Hemoglobin A1c 6.4 H Lactic Acid 0.9 Calcium 8.7 Phosphorus Magnesium 2.2 Cancelled Total Bilirubin 0.3 AST 25 ALT 23 Alkaline Phosphatase 80 C-Reactive Protein 5.1 H Total Protein 7.8 Albumin 3.6 Procalcitonin Urine Color Urine Appearance Urine pH Ur Specific [place] Urine Protein Urine Glucose (UA) Urine Ketones Ur Blood (Man) Urine Nitrate Urine Bilirubin Urine Urobilinogen Leukocyte Esterase Rfl Influenza A (RT-PCR) Influenza B (RT-PCR) RSV (RT-PCR) SARS-CoV-2 RNA (RT-PCR) 02/12/25 02/12/25 02/12/25 16:44 16:47 20:16 WBC RBC Hgb Hct MCV MCH MCHC RDW Plt Count MPV Immature Gran % (Auto) Neut % (Auto) Lymph % (Auto) [place] % (Auto) Eos % (Auto) Baso % (Auto) Lymph # (Auto) [place] # (Auto) Eos # (Auto) Baso # (Auto) Abs Immat Gran (auto) Absolute Neuts (auto) Absolute Nucleated RBC Nucleated RBC % ESR PT INR APTT Sodium Potassium Chloride Carbon Dioxide Anion Gap BUN Creatinine Estim Creat Clear Calc Estimated GFR Glucose POC Capillary Glucose Hemoglobin A1c Lactic Acid Calcium Phosphorus Magnesium Total Bilirubin AST ALT Alkaline Phosphatase C-Reactive Protein 4.6 H Total Protein Albumin Procalcitonin 0.1 Urine Color Yellow Urine Appearance Clear Urine pH 6.5 Ur Specific [place] 1.018 Urine Protein Negative Urine Glucose (UA) 3+ H Urine Ketones Negative Ur Blood (Man) Negative Urine Nitrate Negative Urine Bilirubin Negative Urine Urobilinogen 1.0 Leukocyte Esterase Rfl Negative Influenza A (RT-PCR) Negative Influenza B (RT-PCR) Negative RSV (RT-PCR) Negative SARS-CoV-2 RNA (RT-PCR) Negative 02/12/25 02/13/25 02/13/25 20:20 05:35 07:45 WBC 9.8 RBC 3.62 L Hgb 10.6 L Hct 33.0 L MCV 91.2 MCH 29.3 MCHC 32.1 RDW 13.2 Plt Count 335 MPV 8.5 Immature Gran % (Auto) 0.4 Neut % (Auto) 71.2 Lymph % (Auto) 14.6 L [place] % (Auto) 8.6 H Eos % (Auto) 4.4 Baso % (Auto) 0.8 Lymph # (Auto) 1.43 [place] # (Auto) 0.8 H Eos # (Auto) 0.4 H Baso # (Auto) 0.1 Abs Immat Gran (auto) 0.04 H Absolute Neuts (auto) 7.0 H Absolute Nucleated RBC 0.000 Nucleated RBC % 0.0 ESR 79 H PT INR APTT Sodium 137 Potassium 4.6 Chloride 107 Carbon Dioxide 23 Anion Gap 7 BUN 17 Creatinine 0.98 Estim Creat Clear Calc 47 Estimated GFR > 60 Glucose 140 H POC Capillary Glucose 98 102 Hemoglobin A1c Lactic Acid Calcium 8.4 Phosphorus 2.9 Magnesium 1.9 Total Bilirubin 0.3 AST 19 ALT 18 Alkaline Phosphatase 64 C-Reactive Protein 4.3 H Total Protein 7.0 Albumin 3.3 L Procalcitonin 0.1 Urine Color Urine Appearance Urine pH Ur Specific [place] Urine Protein Urine Glucose (UA) Urine Ketones Ur Blood (Man) Urine Nitrate Urine Bilirubin Urine Urobilinogen Leukocyte Esterase Rfl Influenza A (RT-PCR) Influenza B (RT-PCR) RSV (RT-PCR) SARS-CoV-2 RNA (RT-PCR) Imaging Radiologist's impression: EXAMINATION: XR chest 1V portable IMPRESSION: No acute cardiopulmonary process. EXAM: XR foot LT min 3V IMPRESSION: No acute osseous finding in the left foot. Quality VTE Prophylaxis VTE prophylaxis: pharmacologic ordered If No VTE Prophylaxis Answer both mechanical and pharmacologic: Reason no mechanical VTE proph: medical contraindication (Concerned for vascular compromise contributing to wounds. ) Hospitalist MIPS Advance Care Plan I have confirmed that the patient's Advanced Care Plan is present, code status is documented, or surrogate decision maker is listed in patient medical record.: Yes Medication Reconciliation I have utilized all available resources to obtain, update and review the patients current medications (includes all prescriptions, OTC, herbals, c annabis, and nutritional supplements).: Yes
--- NOTE | 2025-02-13 09:46 | PM.CNGS ---
Assessment and Plan Assessment and plan (1) HTN (hypertension): Code(s): I10 - Essential (primary) hypertension Status: Acute Assessment and Plan: Manage per hospitalist recs. (2) Diabetic foot ulcer: Qualifiers: Diabetes mellitus type: type 2 Diabetic foot ulcer location: toe Laterality: left Non-pressure ulcer stage: with other severity Qualified Code(s): E11.621 - Type 2 diabetes mellitus with foot ulcer; L97.528 - Non-pressure chronic ulcer of other part of left foot with other specified severity Code(s): E11.621 - Type 2 diabetes mellitus with foot ulcer; L97.509 - Non-pressure chronic ulcer of other part of unspecified foot with unspecified severity Status: Acute Assessment and Plan: Patient presented with left great toe ulcer that first started a month ago when a piece of his toenail was ripped off. Since this time the wound has become increasingly more infected. Upon exam dry and wet gangrene is present to a majority of the toe. Purulence drainage from 1st interdigital space. WBC 9.8. Foot x-ray insignificant, however physical exam is very suspicious for osteomyelitis. MRI ordered. Possibility of toe amputation versus I and D discussed with patient. Follow-up with results from foot MRI. Consider toe amputation/I&D today or tomorrow pending results. Patient should remain NPO. Will discuss with surgeon. Continue vancomycin, cefepime, Flagyl. Blood cultures pending. Cover toe in gauze and wrap with Kerlix for time being. (3) Insulin dependent diabetes mellitus: Status: Chronic Assessment and Plan: Continue management per hospitalist. History of Present Illness Consult details Consult date: 02/13/25 Reason for consult: other (diabetic foot wound, osteomyelitis) Requesting physician: Gelacio Catherine MD Narrative: Patient is an 85-year-old Turkish-speaking male with history of insulin-dependent diabetes mellitus and hypertension who we have been asked to see in surgical consultation for left foot wound and concern for osteomyelitis. Patient states he 1st noticed the wound about a month ago when his left great toe was ?loose? and he pulled off a piece of it. He states that the other piece of the nail remained attached to his toe. This past week patient has noted increased pain to his foot, which led him to seek evaluation in the emergency department. Patient reports wearing open-toed sandals. He is able to ambulate independently, but says he has to be very careful with the toe. He is unsure if he has neuropathy, but states all of his toes feel numb. He denies ever having anything like this the past. He states that he tried an alcohol based cleanser that he can not recall the name of, but that it caused the wound to bubble. Patient follows with a PCP and states that he was scheduled for a regular checkup today. Upon admission to the ED, patient's WBC count is 10.2, now down to 9.8. Blood glucose in the 140s. Plain films of the left foot showed no acute osseous findings. MRI of foot ordered to rule out osteomyelitis. [facility] Past Medical History Medical History cook jelly needed Insulin dependent diabetes mellitus HLD (hyperlipidemia) HTN (hypertension) Social History Social History Smoking status: Never smoker Second hand tobacco smoke exposure: No Alcohol intake: never Substance use: never Substance use type: does not use Do You Feel Safe in your Home?: Yes Lack of Transportation: No Lack of Food: Sometimes True Current Housing: I Have Housing Concerned About Future Housing: No Difficulty Paying Gas/Electric Bills: No Difficulty Paying for Meds: No Currently Unemployed: No Education: High School Diploma/GED Difficulty w/ Childcare or Family Care: No Spiritual care concerns: No Meds Home Medications and Allergies Allergies Allergy/AdvReac Type Severity Reaction Status Date / Time No Known Allergies Allergy Verified 02/12/25 16:06 Vital Signs Vital Signs - 24 hr 02/12/25 16:08 02/12/25 17:34 02/12/25 18:00 Temperature 98.1 F Pulse Rate 80 78 78 Respiratory Rate 14 14 15 Blood Pressure 159/62 H 148/60 H 142/63 H Pulse Oximetry 100 100 100 Oxygen Delivery 02/12/25 20:00 02/12/25 20:20 02/13/25 04:30 Temperature 96.8 F L 97.3 F L Pulse Rate 68 58 L Respiratory Rate 20 16 Blood Pressure 147/58 H 143/61 H Pulse Oximetry 100 100 Oxygen Delivery Room Air Exam Const: General: comfortable and no acute distress Eyes: General: appearance normal, both eyes and all related structures Neck: Neck: supple Resp: Effort & Inspection: normal respiratory effort Cardio: Rate: regular rate Skin: General skin exam: normal color and no rashes or lesions noted Neuro: Speech: normal speech Extrem: Other: Left great toe with extensive wet and dry gangrene. Dry black eschar covering roughly 3/4 of the toe circumferentially to medial aspect. Wound extends into 1st interdigital space with wet purulent drainage present. All remaining toes viable. Edema and erythema present throughout foot and extending into the ankle. Patient notes tenderness to palpation of foot and pain with wash rag exfoliation of the wound. DP and PT pulses very faint. Patient has difficulty with wiggling all toes. Foul odor noted. Right foot and lower leg also has significant edema. Patient notes that he 1st noticed the swelling about a week ago. He is able to move all of these toes. Sensation is decreased. Psych: Mental Status: mental status grossly normal Results Labs 02/13/25 05:35 02/13/25 05:35 Labs: Abnormal lab results 02/12/25 02/12/25 02/12/25 Range/Units 16:11 16:21 16:47 WBC 10.2 H (4.5-10.0) K/mm3 RBC 3.95 L (4.6-6.20) M/mm3 Hgb 11.6 L (14.0-18.0) g/dL Hct 35.9 L (42.0-52.0) % Lymph % (Auto) 15.8 L (18.3-44.2) % [place] % (Auto) (2.6-8.5) % Eos % (Auto) 5.0 H (0-4.4) % [place] # (Auto) 0.7 H (0.1-0.6) K/mm3 Eos # (Auto) 0.5 H (0-0.3) K/mm3 Abs Immat Gran (auto) 0.04 H (0.00-0.031) K/mm3 Absolute Neuts (auto) 7.2 H (1.3-6.7) K/mm3 ESR 97 H (0-20) mm/hr PT 14.9 H (11.1-14.7) Seconds APTT 40.4 H (22.3-36.8) Seconds BUN 22 H (9-20) mg/dL Glucose 146 H (65-110) mg/dL POC Capillary Glucose 168 H (65-105) mg/dl Hemoglobin A1c 6.4 H (<5.7) % C-Reactive Protein 5.1 H (<1.0) mg/dL Albumin (3.5-5.1) g/dL Urine Glucose (UA) 3+ H (Negative) mg/dL 02/12/25 02/13/25 Range/Units 20:16 05:35 WBC (4.5-10.0) K/mm3 RBC 3.62 L (4.6-6.20) M/mm3 Hgb 10.6 L (14.0-18.0) g/dL Hct 33.0 L (42.0-52.0) % Lymph % (Auto) 14.6 L (18.3-44.2) % [place] % (Auto) 8.6 H (2.6-8.5) % Eos % (Auto) (0-4.4) % [place] # (Auto) 0.8 H (0.1-0.6) K/mm3 Eos # (Auto) 0.4 H (0-0.3) K/mm3 Abs Immat Gran (auto) 0.04 H (0.00-0.031) K/mm3 Absolute Neuts (auto) 7.0 H (1.3-6.7) K/mm3 ESR 79 H (0-20) mm/hr PT (11.1-14.7) Seconds APTT (22.3-36.8) Seconds BUN (9-20) mg/dL Glucose 140 H (65-110) mg/dL POC Capillary Glucose (65-105) mg/dl Hemoglobin A1c (<5.7) % C-Reactive Protein 4.6 H 4.3 H (<1.0) mg/dL Albumin 3.3 L (3.5-5.1) g/dL Urine Glucose (UA) (Negative) mg/dL Diabetes panel 02/12/25 02/13/25 Range/Units 16:21 05:35 Sodium 138 137 (137-145) mmol/L Potassium 4.5 4.6 (3.4-5.0) mmol/L Chloride 105 107 (98-107) mmol/L Carbon Dioxide 24 23 (22-30) mmol/L BUN 22 H 17 (9-20) mg/dL Creatinine 1.13 0.98 (0.7-1.3) mg/dL Glucose 146 H 140 H (65-110) mg/dL Hemoglobin A1c 6.4 H (<5.7) % Calcium 8.7 8.4 (8.4-10.2) mg/dL AST 25 19 (17-59) U/L ALT 23 18 (6-50) U/L Alkaline Phosphatase 80 64 (38-126) U/L Total Protein 7.8 7.0 (6.3-8.2) g/dL Albumin 3.6 3.3 L (3.5-5.1) g/dL Calcium panel 02/12/25 02/13/25 Range/Units 16:21 05:35 Calcium 8.7 8.4 (8.4-10.2) mg/dL Phosphorus 2.9 (2.5-4.5) mg/dL Albumin 3.6 3.3 L (3.5-5.1) g/dL Pituitary panel 02/12/25 02/13/25 Range/Units 16:21 05:35 Sodium 138 137 (137-145) mmol/L Potassium 4.5 4.6 (3.4-5.0) mmol/L Chloride 105 107 (98-107) mmol/L Carbon Dioxide 24 23 (22-30) mmol/L BUN 22 H 17 (9-20) mg/dL Creatinine 1.13 0.98 (0.7-1.3) mg/dL Glucose 146 H 140 H (65-110) mg/dL Calcium 8.7 8.4 (8.4-10.2) mg/dL Adrenal panel 02/12/25 02/13/25 Range/Units 16:21 05:35 Sodium 138 137 (137-145) mmol/L Potassium 4.5 4.6 (3.4-5.0) mmol/L Chloride 105 107 (98-107) mmol/L Carbon Dioxide 24 23 (22-30) mmol/L BUN 22 H 17 (9-20) mg/dL Creatinine 1.13 0.98 (0.7-1.3) mg/dL Glucose 146 H 140 H (65-110) mg/dL Calcium 8.7 8.4 (8.4-10.2) mg/dL Total Bilirubin 0.3 0.3 (0.2-1.3) mg/dL AST 25 19 (17-59) U/L ALT 23 18 (6-50) U/L Alkaline Phosphatase 80 64 (38-126) U/L Total Protein 7.8 7.0 (6.3-8.2) g/dL Albumin 3.6 3.3 L (3.5-5.1) g/dL All other labs normal.
[2025-02-13 14:00] VITALS: BP 152/61; PULSE 67; RESP 16; TEMP 36.4; O2SAT 100
[2025-02-13] MEDS: HYDROcodone/acetaminophen (*CRX) 5-325 MG TABLET 1 TAB PO (14:32)
[2025-02-13] MEDS: [UNRECOGNIZED DRUG - REMARK] XX (14:33)
--- NOTE | 2025-02-13 18:42 | PC.NURSE ---
Pt has egyptian speaking family members. Family members notified twice today to bring in home meds so medications can be reconciled and ordered by the hospital provider. Family brought home meds loose in organizer and not pill bottles. Left in room with pt and family no longer present. Will notify to bring the actual bottles. Call placed to contact in chart but no answer.
[2025-02-13] MEDS: VANCOMYCIN 1,250 MG/NS 250 ML 1,250 MG/250 ML BAG 166.67 MG IVPB (19:00)
[2025-02-13 20:23] VITALS: BP 151/68; PULSE 78; RESP 18; TEMP 36.4; O2SAT 98
[2025-02-13] MEDS: MORPHINE SULFATE (*CRX) 2 MG/ML INJ IV PUSH (20:48)
[2025-02-13] MEDS: LACTATED RINGERS 1,000 ML 75 ML IV CONT (20:48)
[2025-02-13] MEDS: SOD HYPOCHLORITE 1/4 STRENGTH 473 ML 1 APPLIC TOPICAL (20:49)
[2025-02-14 04:01] LABS: Hematocrit 36.6 % (42.0-52.0); Hemoglobin 12.0 g/dL (14.0-18.0); Immature Granulocyte Percent A 0.4 % (0-0.5); Lymphocytes Absolute Auto 1.71 K/mm3 (0.9-3.2); Mean Corpuscular HGB Conc 32.8 g/dl (32-36); Mean Corpuscular Hemoglobin 29.6 pg (26-34); Mean Corpuscular Volume 90.4 fl (80-100); Nucleated Red Blood Cells Absolute Auto 0.000 K/mm3 (0.0-0.012); Nucleated Red Blood Cells Perc 0.0 % (0.0-0.2); Platelet Count Result 335 k/mm3 (150-375); Red Blood Count 4.05 M/mm3 (4.6-6.20); White Blood Count 10.6 K/mm3 (4.5-10.0)
[2025-02-14 04:13] LABS: CRP 5.7 mg/dL (<1.0)
[2025-02-14 04:16] LABS: Alanine Aminotransferase 19 U/L (6-50); Albumin Level 3.7 g/dL (3.5-5.1); Alkaline Phosphatase 71 U/L (38-126); Anion Gap 9 mmol/L (4-12); Aspartate Amino Transferase 23 U/L (17-59); Bilirubin,Total 0.5 mg/dL (0.2-1.3); Blood Urea Nitrogen 14 mg/dL (9-20); Calcium 8.9 mg/dL (8.4-10.2); Carbon Dioxide 26 mmol/L (22-30); Chloride 104 mmol/L (98-107); Estimated CRCL calculation 42 ml/min; Estimated Glomerular Filt Rate > 60; Glucose 83 mg/dL (65-110); Magnesium 1.8 mg/dL (1.6-2.3); Potassium 4.2 mmol/L (3.4-5.0); Sodium 139 mmol/L (137-145); Total Protein 7.9 g/dL (6.3-8.2)
[2025-02-14 04:29] LABS: INR 1.3; Prothrombin Time 16.2 Seconds (11.1-14.7)
[2025-02-14 04:30] LABS: Partial Thromboplastin Time 75.2 Seconds (22.3-36.8)
[2025-02-14 04:39] LABS: Procalcitonin 0.2 ng/mL
[2025-02-14] MEDS: HEPARIN SOD/D5W 100 UNITS/ML 25,000 UNITS/250 ML BAG 12 UNITS IV CONT (04:46)
[2025-02-14] MEDS: CEFEPIME 1 GM/NS 50 ML 1 GM/50 ML BAG IVPB ×2 (04:52→16:58)
[2025-02-14 05:28] VITALS: BP 142/59; PULSE 65; RESP 18; TEMP 36.2; O2SAT 100
[2025-02-14] MEDS: metroNIDAZOLE 500 MG/ISO 100ML 500 MG/100 ML BAG 100 MG IVPB ×2 (06:25→14:09)
[2025-02-14 08:00] VITALS: O2SAT 100
--- NOTE | 2025-02-14 08:04 | PM.IMPN ---
Progress Note: A&P Assessment and Plan (1) Diabetic foot ulcer: Qualifiers: Diabetes mellitus type: type 2 Diabetic foot ulcer location: toe Laterality: left Non-pressure ulcer stage: with other severity Qualified Code(s): E11.621 - Type 2 diabetes mellitus with foot ulcer; L97.528 - Non-pressure chronic ulcer of other part of left foot with other specified severity Code(s): E11.621 - Type 2 diabetes mellitus with foot ulcer; L97.509 - Non-pressure chronic ulcer of other part of unspecified foot with unspecified severity Status: Acute Assessment and Plan: -Gangrenous diabetic foot wound from great toenail source with involvement of great toe and space between first and second toes -All toes red and swollen, great toe is black -Patient states worsened foot over past 1 month or so -Surgery consulted, will see on 02/13 -IV cefepime, metronidazole and vancomycin started in ER and will continue -Painful portions of foot wound for patient, pain medication ordered -Anticipate plan to go to OR on 02/13/25 with general surgery -MRI ordered to assess for osteomyelitis nearby as well 02/13: - General surgery consulted and possible amputation pending further evaluation with MRI. Maintain NPO at this time. - On vancomycin/cefepime/flagyl - day 2. (2) Insulin dependent diabetes mellitus: Status: Chronic Assessment and Plan: -Ordered A1c and ACHS fingerstick glucose with SSI -Diabetic diet, NPO at midnight for OR on 02/13 -Patient actually on an oral medication rather than insulin, unknown name/dose at this time, gets meds at [facility] (there are two) 02/13: - A1c 6.4. - NPO currently, will change insulin to regular, q6h scheduled sliding scale. (3) HTN (hypertension): Code(s): I10 - Essential (primary) hypertension Status: Acute Assessment and Plan: -On unknown medication/unknown dose for HTN, gets meds at [facility] in [place] 02/13: - Stable 140s/60s - awaiting med rec from outside pharmacy. (4) HLD (hyperlipidemia): Code(s): E78.5 - Hyperlipidemia, unspecified Status: Acute Assessment and Plan: -On unknown medication/unknown dose for HLD, need to call pharmacy to find out for Med Rec purposes 02/13: - Awaiting med rec from outside pharmacy. (5) bench molder needed: Code(s): Z75.8 - Other problems related to medical facilities and other health care Status: Acute Assessment and Plan: -Marshallese speaking, does not speak/understand more than a few words of Slovenian, music composition teacher services required -Patient cannot read/write in Slovenian or Marshallese 02/13: - Photoengraving Printer device at bedside, patient able to utilize well. Plan -Medication Reconciliation not possible as pharmacy is closed and patient/family do not know what medications he takes -Surgery to see patient on 02/13, anticipate partial foot amputation -MRI ordered but may not be needed, depending on General Surgery plan 02/13: Susan Elena is n 85 year old male with PMH HTN and DM presenting with one month history of worsening left great toe wound. Appearance of eschar/gangrene on examination and surgery is consulted. - Per nursing, patient uses multiple pharmacies and family will be bringing his actual medications by for review. I have encouraged nursing to also request any POLST forms or POA paperwork that is available. Subjective Date/time seen: 02/14/25 08:04 Interval history: Utilizing music composition teacher, visit conducted this am. Susan states pain manageable, not severe. Denies concerns or new complaints. Understands need for surgical consultation. Review of Systems Review of Systems: All systems reviewed & are unremarkable except as noted in HPI and below Exam Narrative: GENERAL APPEARANCE: Appears to be in no acute distress. HEAD: normocephalic atraumatic ENT: Hearing grossly intact, no nasal discharge NECK: Neck supple, trachea midline. CARDIAC: Normal S1/S2. Rhythm is regular. No murmurs, rubs, or gallops. No cyanosis or pallor. Extremities are warm and well perfused. LUNGS: Clear to auscultation without rales, rhonchi, wheezing or diminished breath sounds. Respirations even and unlabored. ABDOMEN: BS positive x 4 quadrants. Soft, nondistended, nontender. No guarding or rebound. PERIPHERAL VASCULAR: +1 blle edema. Lower extremities slightly cool. NEURO: Follows commands. No focal deficits. SKIN: Left great toe with eschar covering the medial surface with drainage from the interdigital space. There is erythema extending to the ankle. Odiferous. PSYCH: Stable, no paranoia or delusional thinking. Objective Data Vital Signs Vital Signs: Vital Signs - 24 hr 02/13/25 14:00 02/13/25 20:00 02/13/25 20:23 Temperature 97.6 F 97.6 F Pulse Rate 67 78 Respiratory Rate 16 18 Blood Pressure 152/61 H 151/68 H Pulse Oximetry 100 98 Oxygen Delivery Room Air 02/14/25 05:28 Temperature 97.1 F L Pulse Rate 65 Respiratory Rate 18 Blood Pressure 142/59 H Pulse Oximetry 100 Oxygen Delivery Intake/Output Intake/Output: Intake & Output 02/11/25 02/12/25 02/13/25 02/14/25 23:59 23:59 23:59 23:59 Intake Total 2150 1800 Output Total 2700 600 Balance 2150 -900 -600 Meds/Results Medications: Active Medications Generic Name Dose Route Start Last Admin Trade Name Freq PRN Reason Stop Dose Admin Acetaminophen 650 mg 02/12/25 21:13 Acetaminophen 325 Mg Tablet PO Q4H PRN Mild Pain (1-3) or Fever Hydrocodone Bitart/Acetaminophen 1 tab 02/12/25 21:13 02/13/25 14:32 Hydrocodone/Acetaminophen (*Crx) 5-325 Mg Tablet PO 1 tab Q4H PRN Administration Pain Rated 4-6 Dextrose 12.5 gm 02/12/25 18:53 Dextrose 50% 25 Gm/50 Ml Syringe IV PUSH PRN PRN Hypoglycemia Protocol Glucagon 1 mg 02/12/25 18:53 Glucagon For Inj 1 Mg Vial IM PRN PRN Hypoglycemia Protocol Glucose 15 gm 02/12/25 18:53 Glucose Oral Gel 15 Gm Of Glucse In 37.5 Gm Tube PO PRN PRN Hypoglycemia Protocol Heparin Sodium (Porcine) 5,500 units 02/14/25 01:52 Heparin Sodium 5,000 Units/Ml Vial IV PUSH PRN PRN aPTT less than 55 seconds Heparin Sodium (Porcine) 2,500 units 02/14/25 01:52 Heparin Sodium 5,000 Units/Ml Vial IV PUSH PRN PRN aPTT 55 - 70 seconds Metronidazole 500 mg in 100 mls @ 100 mls/hr 02/12/25 23:00 02/14/25 06:25 Flagyl 500 Mg/Iso Soln 100 Ml IVPB 100 mls/hr Q8HR BINA Administration Lactated Ringer's 1,000 mls @ 75 mls/hr 02/12/25 17:35 02/13/25 20:48 Lr - Lactated Ringers Iv IV CONT 75 mls/hr .[id number] BINA Administration Dextrose 1,000 mls @ 100 mls/hr 02/12/25 18:53 Dextrose 5% 1,000 Ml IVPB PRN PRN Hypoglycemia Protocol Cefepime HCl 1 gm in 50 mls @ 100 mls/hr 02/13/25 05:00 02/14/25 04:52 Maxipime 1 Gm/Ns 50 Ml IVPB 100 mls/hr Q12H BINA Administration Vancomycin HCl 1,250 mg in 250 mls @ 166.667 mls/hr 02/13/25 18:00 02/13/25 19:00 Vancomycin 1,250 Mg/Ns 250 Ml IVPB 166.67 mls/hr Q24H BINA Administration Heparin Sodium/Dextrose 25,000 units in 250 mls @ 12 mls/hr 02/14/25 01:55 02/14/25 04:46 Heparin Sodium/D5w 100 Units/Ml IV CONT 1,200 units/hr .[id number] BINA 12 mls/hr Administration Protocol 1,200 UNITS/HR Insulin Aspart 2 - 5 units 02/13/25 08:00 02/13/25 18:09 Insulin Aspart (*Bkc) 100 Units/Ml SUB-Q Not Given TIDWM [facility] Protocol Insulin Human Regular 2 - 5 units 02/13/25 12:00 02/14/25 04:55 Insulin Human Regular (*Bkc) 100 Units/Ml SUB-Q Not Given Q6HR [facility] Protocol Miscellaneous Information 0 each 02/13/25 00:01 02/14/25 00:25 Dakins Add Site Of Use XX 03/15/25 00:00 Not Given CLARIFY [facility] Morphine Sulfate 2 mg 02/12/25 21:13 02/13/25 20:48 Morphine Sulfate (*Crx) 2 Mg/Ml Inj IV PUSH 2 mg Q4H PRN Administration Pain Rated 7-10 Sodium Hypochlorite 1 applic 02/13/25 21:00 02/13/25 20:49 Sod Hypochlorite 1/4 Strength 473 Ml TOPICAL 1 applic Q12HR BINA Administration Radiology Results: ITS Impressions Chest X-Ray 02/12/25 16:16 IMPRESSION: No acute cardiopulmonary process. Foot X-Ray 02/12/25 16:17 IMPRESSION: No acute osseous finding in the left foot. Venous Doppler Study 02/13/25 22:08 IMPRESSION: Bilateral posterior tibial and peroneal vein thrombosis. 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 Recommend CT angiography of the left lower extremity for further evaluation. Results reported telephonically to Cm Phillips RN by Dr. Morris at 10:14 PM on 02/13/2025. Labs Labs: Laboratory Results - last 24 hr 02/13/25 02/13/25 02/13/25 05:35 11:26 16:52 WBC RBC Hgb Hct MCV MCH MCHC RDW Plt Count MPV Immature Gran % (Auto) Neut % (Auto) Lymph % (Auto) Oliver % (Auto) Eos % (Auto) Baso % (Auto) Lymph # (Auto) Oliver # (Auto) Eos # (Auto) Baso # (Auto) Abs Immat Gran (auto) Absolute Neuts (auto) Absolute Nucleated RBC Nucleated RBC % ESR 79 H PT INR APTT Sodium Potassium Chloride Carbon Dioxide Anion Gap BUN Creatinine Estim Creat Clear Calc Estimated GFR Glucose POC Capillary Glucose 94 86 Calcium Phosphorus Magnesium Total Bilirubin AST ALT Alkaline Phosphatase C-Reactive Protein Total Protein Albumin Procalcitonin 02/13/25 02/14/25 02/14/25 19:52 03:56 07:52 WBC 10.6 H RBC 4.05 L Hgb 12.0 L Hct 36.6 L MCV 90.4 MCH 29.6 MCHC 32.8 RDW 12.9 Plt Count 335 MPV 8.1 Immature Gran % (Auto) 0.4 Neut % (Auto) 70.3 Lymph % (Auto) 16.2 L Oliver % (Auto) 7.9 Eos % (Auto) 4.5 H Baso % (Auto) 0.7 Lymph # (Auto) 1.71 Oliver # (Auto) 0.8 H Eos # (Auto) 0.5 H Baso # (Auto) 0.1 Abs Immat Gran (auto) 0.04 H Absolute Neuts (auto) 7.4 H Absolute Nucleated RBC 0.000 Nucleated RBC % 0.0 ESR 117 H PT 16.2 H INR 1.3 APTT 75.2 H Sodium 139 Potassium 4.2 Chloride 104 Carbon Dioxide 26 Anion Gap 9 BUN 14 Creatinine 1.12 Estim Creat Clear Calc 42 Estimated GFR > 60 Glucose 83 POC Capillary Glucose 122 H 88 Calcium 8.9 Phosphorus 2.9 Magnesium 1.8 Total Bilirubin 0.5 AST 23 ALT 19 Alkaline Phosphatase 71 C-Reactive Protein 5.7 H Total Protein 7.9 Albumin 3.7 Procalcitonin 0.2 Quality VTE Prophylaxis VTE prophylaxis: pharmacologic ordered
[2025-02-14] MEDS: HYDROcodone/acetaminophen (*CRX) 5-325 MG TABLET 1 TAB PO ×2 (09:15→16:35)
[2025-02-14] MEDS: MORPHINE SULFATE (*CRX) 2 MG/ML INJ IV PUSH ×2 (09:19→17:22)
[2025-02-14] MEDS: LACTATED RINGERS 1,000 ML 75 ML IV CONT (10:08)
[2025-02-14 11:44] LABS: INR 1.3; Prothrombin Time 16.0 Seconds (11.1-14.7)
--- NOTE | 2025-02-14 12:41 | P.PNGS_ITS ---
Progress Note: A&P Assessment and Plan (1) Diabetic foot ulcer: Qualifiers: Diabetes mellitus type: type 2 Diabetic foot ulcer location: toe Laterality: left Non-pressure ulcer stage: with other severity Qualified Code(s): E11.621 - Type 2 diabetes mellitus with foot ulcer; L97.528 - Non- pressure chronic ulcer of other part of left foot with other specified severity Code(s): E11.621 - Type 2 diabetes mellitus with foot ulcer; L97.509 - Non-pressure chronic ulcer of other part of unspecified foot with unspecified severity Status: Acute Assessment and Plan: * Gangrenous left great toe ulcer with another ulcer to the 2nd toe. Patient has peripheral arterial disease with hx of LLE stent. CTA LLE showed the stent is occluded and poor distal flow with one-vessel runoff. * Recommend transfer to tertiary care facility for vascular surgery evaluation. If vascular surgery feels there is not much else to offer to provide better arterial flow to the foot, then we will plan to proceed with left great toe amputation and possible left 2nd toe amputation tomorrow. Will allow a diabetic diet today and NPO after midnight for possible surgery tomorrow. * Continue IV vancomycin, cefepime, and metronidazole * Continue Dakin's soaked gauze dressing changes (2) DVT of lower extremity, bilateral: Code(s): I82.403 - Acute embolism and thrombosis of unspecified deep veins of lower extremity, bilateral Status: Acute Assessment and Plan: * Venous Doppler showed bilateral posterior tibial and peroneal vein thrombosis. Currently on heparin infusion. (3) PAD (peripheral artery disease): Code(s): I73.9 - Peripheral vascular disease, unspecified Status: Acute Assessment and Plan: * Venous doppler showed possible SFA severe stenosis with no flow detected in the left posterior tibial artery, recommend CTA of LLE. * CTA LLE reveiwed with the Radiologist, there is a endovascular stent in place that is occluded and poor distal flow with only a one-vessel runoff to the foot. There is also evidence of osteomyelitis of the 1st distal phalanx. * Would recommend transfer to tertiary care facility for vascular surgery evalua tion. Discussed with Hospitalist. If there is not much vascular surgery can offer, then he will have the risk of healing complications and need for more proximal amputation, but will need at least toe amputation as mentioned above for source control. (4) Insulin dependent diabetes mellitus: Status: Chronic Assessment and Plan: * Continue management per hospitalist. (5) HTN (hypertension): Code(s): I10 - Essential (primary) hypertension Status: Acute Plan I have discussed the patient's case and plan of care with Dr. Arreola. Subjective Subjective Date/Time Seen: 02/14/25 12:41 Patient reports: no new complaints, still having pain (left foot) and afebrile Interval history: No acute changes overnight. Pain is unchanged. He was unable to tolerate MRI yesterday. He was able to have venous dopplers but no ABIs. Exam Extrem: Other: Bilateral lower extremity edema, 3+ pitting. No redness or wounds of the right foot or lower extremity. Left great toe ulcer with dry and wet gangrene. The entire dorsal aspect of the left great toe is a black firm eschar that evolves to callused moist skin at the lateral and medial aspect of the toe and also extending to the dorsal aspect of the foot over the 1st MTP joint, with purulent drainage and a foul odor. There i s another small ulcer on the medial aspect of the 2nd toe that is firm and black, the second toe is edematous and tender. There is skin breakdown with moisture and drainage in the interdigital spaces between the 1-2nd toes and 2- 3rd toes. There is some dark discoloration of the plantar aspect of the base of the 2nd toe and slightly dusky at the plantar base of the 3rd toe. 4th and 5th toes have some mild edema, but appear viable with no wounds. There is diffuse redness over entire dorsal foot extending just above the left ankle with diffuse tenderness of the left foot. Objective Data Vital Signs Vital Signs: Vital Signs - 24 hr 02/13/25 14:00 02/13/25 20:00 02/13/25 20:23 Temperature 97.6 F 97.6 F Pulse Rate 67 78 Respiratory Rate 16 18 Blood Pressure 152/61 H 151/68 H Pulse Oximetry 100 98 Oxygen Delivery Room Air 02/14/25 05:28 Temperature 97.1 F L Pulse Rate 65 Respiratory Rate 18 Blood Pressure 142/59 H Pulse Oximetry 100 Oxygen Delivery Intake/Output Intake/Output: Intake & Output 02/11/25 02/12/25 02/13/25 02/14/25 23:59 23:59 23:59 23:59 Intake Total 2150 1800 1000 Output Total 2700 600 Balance 2150 -900 400 Meds/Results Medications: Active Medications Generic Name Dose Route Start Last Admin Trade Name Debra PRN Reason Stop Dose Admin Acetaminophen 650 mg 02/12/25 21:13 Acetaminophen 325 Mg Tablet PO Q4H PRN Mild Pain (1-3) or Fever Hydrocodone Bitart/Acetaminophen 1 tab 02/12/25 21:13 02/14/25 09:15 Hydrocodone/Acetaminophen (*Crx) 5-325 Mg Tablet PO 1 tab Q4H PRN Administration Pain Rated 4-6 Dextrose 12.5 gm 02/12/25 18:53 Dextrose 50% 25 Gm/50 Ml Syringe IV PUSH PRN PRN Hypoglycemia Protocol Glucagon 1 mg 02/12/25 18:53 Glucagon For Inj 1 Mg Vial IM PRN PRN Hypoglycemia Protocol Glucose 15 gm 02/12/25 18:53 Glucose Oral Gel 15 Gm Of Glucse In 37.5 Gm Tube PO PRN PRN Hypoglycemia Protocol Heparin Sodium (Porcine) 5,500 units 02/14/25 01:52 Heparin Sodium 5,000 Units/Ml Vial IV PUSH PRN PRN aPTT less than 55 seconds Heparin Sodium (Porcine) 2,500 units 02/14/25 01:52 Heparin Sodium 5,000 Units/Ml Vial IV PUSH PRN PRN aPTT 55 - 70 seconds Metronidazole 500 mg in 100 mls @ 100 mls/hr 02/12/25 23:00 02/14/25 06:25 Flagyl 500 Mg/Iso Soln 100 Ml IVPB 100 mls/hr Q8HR BINA Administration Lactated Ringer's 1,000 mls @ 75 mls/hr 02/12/25 17:35 02/14/25 10:08 Lr - Lactated Ringers Iv IV CONT 75 mls/hr .[id number] BINA Administration Dextrose 1,000 mls @ 100 mls/hr 02/12/25 18:53 Dextrose 5% 1,000 Ml IVPB PRN PRN Hypoglycemia Protocol Cefepime HCl 1 gm in 50 mls @ 100 mls/hr 02/13/25 05:00 02/14/25 04:52 Maxipime 1 Gm/Ns 50 Ml IVPB 100 mls/hr Q12H BINA Administration Vancomycin HCl 1,250 mg in 250 mls @ 166.667 mls/hr 02/13/25 18:00 02/13/25 19:00 Vancomycin 1,250 Mg/Ns 250 Ml IVPB 166.67 mls/hr Q24H BINA Administration Heparin Sodium/Dextrose 25,000 units in 250 mls @ 12 mls/hr 02/14/25 01:55 02/14/25 04:46 Heparin Sodium/D5w 100 Units/Ml IV CONT 1,200 units/hr .[id number] BINA 12 mls/hr Administration Protocol 1,200 UNITS/HR Insulin Aspart 2 - 5 units 02/13/25 08:00 02/14/25 12:36 Insulin Aspart (*Bkc) 100 Units/Ml SUB-Q Not Given TIDWM [facility] Protocol Insulin Human Regular 2 - 5 units 02/13/25 12:00 02/14/25 12:36 Insulin Human Regular (*Bkc) 100 Units/Ml SUB-Q Not Given Q6HR [facility] Protocol Miscellaneous Information 0 each 02/13/25 00:01 02/14/25 00:25 Dakjami Add Site Of Use XX 03/15/25 00:00 Not Given CLARIFY [facility] Morphine Sulfate 2 mg 02/12/25 21:13 02/14/25 09:19 Morphine Sulfate (*Crx) 2 Mg/Ml Inj IV PUSH 2 mg Q4H PRN Administration Pain Rated 7-10 Sodium Hypochlorite 1 applic 02/13/25 21:00 02/13/25 20:49 Sod Hypochlorite 1/4 Strength 473 Ml TOPICAL 1 applic Q12HR BINA Administration Radiology Results: ITS Impressions Chest X-Ray 02/12/25 16:16 IMPRESSION: No acute cardiopulmonary process. Foot X-Ray 02/12/25 16:17 IMPRESSION: No acute osseous finding in the left foot. Venous Doppler Study 02/13/25 22:08 IMPRESSION: Bilateral posterior tibial and peroneal vein thrombosis. 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 Recommend CT angiography of the left lower extremity for further evaluation. Results reported telephonically to Cm Phillips RN by Dr. Morris at 10:14 PM on 02/13/2025. Lower Extremity CTA 02/14/25 11:39 IMPRESSION: No significant left-sided inflow disease. 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 Single vessel runoff into the left calf with collateralized two-vessel runoff into the left foot. Labs Labs: Laboratory Results - last 24 hr 02/13/25 02/13/25 02/14/25 16:52 19:52 03:56 WBC 10.6 H RBC 4.05 L Hgb 12.0 L Hct 36.6 L MCV 90.4 MCH 29.6 MCHC 32.8 RDW 12.9 Plt Count 335 MPV 8.1 Immature Gran % (Auto) 0.4 Neut % (Auto) 70.3 Lymph % (Auto) 16.2 L Cobb % (Auto) 7.9 Eos % (Auto) 4.5 H Baso % (Auto) 0.7 Lymph # (Auto) 1.71 Cobb # (Auto) 0.8 H Eos # (Auto) 0.5 H Baso # (Auto) 0.1 Abs Immat Gran (auto) 0.04 H Absolute Neuts (auto) 7.4 H Absolute Nucleated RBC 0.000 Nucleated RBC % 0.0 ESR 117 H PT 16.2 H INR 1.3 APTT 75.2 H Sodium 139 Potassium 4.2 Chloride 104 Carbon Dioxide 26 Anion Gap 9 BUN 14 Creatinine 1.12 Estim Creat Clear Calc 42 Estimated GFR > 60 Glucose 83 POC Capillary Glucose 86 122 H Calcium 8.9 Phosphorus 2.9 Magnesium 1.8 Total Bilirubin 0.5 AST 23 ALT 19 Alkaline Phosphatase 71 C-Reactive Protein 5.7 H Total Protein 7.9 Albumin 3.7 Procalcitonin 0.2 02/14/25 02/14/25 02/14/25 07:52 11:05 11:29 WBC RBC Hgb Hct MCV MCH MCHC RDW Plt Count MPV Immature Gran % (Auto) Neut % (Auto) Lymph % (Auto) Cobb % (Auto) Eos % (Auto) Baso % (Auto) Lymph # (Auto) Cobb # (Auto) Eos # (Auto) Baso # (Auto) Abs Immat Gran (auto) Absolute Neuts (auto) Absolute Nucleated RBC Nucleated RBC % ESR PT 16.0 H INR 1.3 APTT Sodium Potassium Chloride Carbon Dioxide Anion Gap BUN Creatinine Estim Creat Clear Calc Estimated GFR Glucose POC Capillary Glucose 88 87 Calcium Phosphorus Magnesium Total Bilirubin AST ALT Alkaline Phosphatase C-Reactive Protein Total Protein Albumin Procalcitonin
[2025-02-14 12:42] LABS: Partial Thromboplastin Time 144.6 Seconds (22.3-36.8)
[2025-02-14 14:00] VITALS: BP 145/62; PULSE 71; RESP 18; TEMP 36.7; O2SAT 100
[2025-02-14] MEDS: PHARMACIST COMMUNICATION ORDER 1 EACH XX (14:05)
--- NOTE | 2025-02-14 15:37 | PM.TDS ---
Transfer Discharge Sum: Prov Provider Date of admission: 02/12/25 17:34 Primary care physician: Marvin Hill MD Admitting clinician: Sarahi Payne MD Attending physician on admission: Sarahi Payne Consults: 02/12/25 17:35 Consult to Physician Routine Comment: Consulting Provider: Raad Arreola Reason for consultation: gangrenous toes Has provider been notified: Yes Attending physician on discharge: Kirill Gallagher Discharging clinician: Catalina Prasad Anticipated date of transfer: 02/14/25 Receiving physician/facility: [facility] DS: Admitting Diagnosis Discharge Date 02/14/2025 Admitting Diagnosis Gangrenous diabetic foot wound Type 2 diabetes Hypertension DVT Hyperlipidemia DS: Discharge Diagnosis Discharge Diagnosis (1) Diabetic foot ulcer: Qualifiers: Diabetes mellitus type: type 2 Diabetic foot ulcer location: toe Laterality: left Non-pressure ulcer stage: with other severity Qualified Code(s): E11.621 - Type 2 diabetes mellitus with foot ulcer; L97.528 - Non-pressure chronic ulcer of other part of left foot with other specified severity Code(s): E11.621 - Type 2 diabetes mellitus with foot ulcer; L97.509 - Non-pressure chronic ulcer of other part of unspecified foot with unspecified severity Status: Acute Assessment and Plan: -Gangrenous diabetic foot wound from great toenail source with involvement of great toe and space between first and second toes -All toes red and swollen, great toe is black -Patient states worsened foot over past 1 month or so -Surgery consulted, will see on 02/13 -IV cefepime, metronidazole and vancomycin started in ER and will continue -Painful portions of foot wound for patient, pain medication ordered -Anticipated plan to go to OR on 02/13/25 with general surgery -however transferred -MRI ordered to assess for osteomyelitis nearby as well 02/13: - General surgery consulted and possible amputation pending further evaluation with MRI. Maintain NPO at this time. - On vancomycin/cefepime/flagyl - day 2. 02/14--CTA was performed, noted a single-vessel runoff to the lower calf and a lower foot on the left. Spoke with the surgeon and, they requested patient be transferred to higher level of care. -spoke with Dr. Barbosa -vascular surgeon at [facility], he accepts the patient as consult. Spoke to the hospitalist Candace Sanatna -he accepts the patient and his general med admission for diagnosis acute limb ischemia -patient updated on transfer. (2) Insulin dependent diabetes mellitus: Status: Chronic Assessment and Plan: -Ordered A1c and ACHS fingerstick glucose with SSI -Diabetic diet, NPO at midnight for OR on 02/13 -Patient actually on an oral medication rather than insulin, unknown name/dose at this time, gets meds at [facility] (there are two) 02/13: - A1c 6.4. - NPO currently, will change insulin to regular, q6h scheduled sliding scale. 02/14-diet resumed (3) HTN (hypertension): Code(s): I10 - Essential (primary) hypertension Status: Acute Assessment and Plan: -On unknown medication/unknown dose for HTN, gets meds at [facility] in [place] 02/13: - Stable 140s/60s - awaiting med rec from outside pharmacy. 02/14-continue medications (4) HLD (hyperlipidemia): Code(s): E78.5 - Hyperlipidemia, unspecified Status: Acute Assessment and Plan: -On unknown medication/unknown dose for HLD, need to call pharmacy to find out for Med Rec purposes 02/13: - Awaiting med rec from outside pharmacy. [id number] medications (5) shipping associate needed: Code(s): Z75.8 - Other problems related to medical facilities and other health care Status: Acute Assessment and Plan: -East [place]orese speaking, does not speak/understand more than a few words of Tajik, debrander services required -Patient cannot read/write in Tajik or [place]orese 02/13: - Quality Control Systems Manager device at bedside, patient able to utilize well. (6) Limb ischemia: Code(s): I99.8 - Other disorder of circulatory system Status: Acute Assessment and Plan: -Gangrenous diabetic foot wound from great toenail source with involvement of great toe and space between first and second toes -All toes red and swollen, great toe is black -Patient states worsened foot over past 1 month or so -Surgery consulted, will see on 02/13 -IV cefepime, metronidazole and vancomycin started in ER and will continue -Painful portions of foot wound for patient, pain medication ordered -Anticipate plan to go to OR on 02/13/25 with general surgery -MRI ordered to assess for osteomyelitis nearby as well 02/13: - General surgery consulted and possible amputation pending further evaluation with MRI. Maintain NPO at this time. - On vancomycin/cefepime/flagyl - day 2. 02/14- -CTA was performed, noted a single-vessel runoff to the lower calf and a lower foot on the left. Spoke with the surgeon and, they requested patient be transferred to higher level of care. -spoke with Dr. Barbosa -vascular surgeon at [facility], he accepts the patient as consult. Spoke to the hospitalist Candace Santana -he accepts the patient and his general med admission for diagnosis acute limb ischemia -patient updated on transfer. Plan -Medication Reconciliation not possible as pharmacy is closed and patient/family do not know what medications he takes -Surgery to see patient on 02/13, anticipate partial foot amputation -MRI ordered but may not be needed, depending on General Surgery plan 02/13: Susan Elena is n 85 year old male with PMH HTN and DM presenting with one month history of worsening left great toe wound. Appearance of eschar/gangrene on examination and surgery is consulted. - Per nursing, patient uses multiple pharmacies and family will be bringing his actual medications by for review. I have encouraged nursing to also request any POLST forms or POA paperwork that is available. Transfer Discharge Sum: Med Medications Active and Home Medications: Active Medications Acetaminophen (Acetaminophen 325 Mg Tablet) 650 mg PO Q4H PRN PRN Reason: Mild Pain (1-3) or Fever Hydrocodone Bitart/Acetaminophen (Hydrocodone/Acetaminophen (*Crx) 5-325 Mg Tablet) 1 tab PO Q4H PRN PRN Reason: Pain Rated 4-6 Last Admin: 02/14/25 09:15 Dose: 1 tab Dextrose (Dextrose 50% 25 Gm/50 Ml Syringe) 12.5 gm IV PUSH PRN PRN; Protocol PRN Reason: Hypoglycemia Glucagon (Glucagon For Inj 1 Mg Vial) 1 mg IM PRN PRN; Protocol PRN Reason: Hypoglycemia Glucose (Glucose Oral Gel 15 Gm Of Glucse In 37.5 Gm Tube) 15 gm PO PRN PRN; Protocol PRN Reason: Hypoglycemia Heparin Sodium (Porcine) (Heparin Sodium 5,000 Units/Ml Vial) 5,500 units IV PUSH PRN PRN PRN Reason: aPTT less than 55 seconds Heparin Sodium (Porcine) (Heparin Sodium 5,000 Units/Ml Vial) 2,500 units IV PUSH PRN PRN PRN Reason: aPTT 55 - 70 seconds Metronidazole (Flagyl 500 Mg/Iso Soln 100 Ml) 500 mg in 100 mls @ 100 mls/hr IVPB Q8HR [facility] Last Admin: 02/14/25 14:09 Dose: 100 mls/hr Lactated Ringer's (Lr - Lactated Ringers Iv) 1,000 mls @ 75 mls/hr IV CONT .[id number] BIAN Last Admin: 02/14/25 10:08 Dose: 75 mls/hr Dextrose (Dextrose 5% 1,000 Ml) 1,000 mls @ 100 mls/hr IVPB PRN PRN; Protocol PRN Reason: Hypoglycemia Cefepime HCl (Maxipime 1 Gm/Ns 50 Ml) 1 gm in 50 mls @ 100 mls/hr IVPB Q12H [facility] Last Admin: 02/14/25 04:52 Dose: 100 mls/hr Vancomycin HCl (Vancomycin 1,250 Mg/Ns 250 Ml) 1,250 mg in 250 mls @ 166.667 mls/hr IVPB Q24H BINA Last Admin: 02/13/25 19:00 Dose: 166.67 mls/hr Heparin Sodium/Dextrose (Heparin Sodium/D5w 100 Units/Ml) 25,000 units in 250 mls @ 10 mls/hr IV CONT .Q24H BINA; Protocol Stop: 02/15/25 06:00 Last Titration: 02/14/25 14:03 Dose: 1,000 units/hr, 10 mls/hr Insulin Aspart (Insulin Aspart (*Bkc) 100 Units/Ml) 2 - 5 units SUB-Q TIDWM BNIA; Protocol Last Admin: 02/14/25 12:36 Dose: Not Given Insulin Human Regular (Insulin Human Regular (*Bkc) 100 Units/Ml) 2 - 5 units SUB-Q Q6HR BINA; Protocol Last Admin: 02/14/25 12:36 Dose: Not Given Miscellaneous Information (Dakins Add Site Of Use) 0 each XX CLARIFY BINA Stop: 03/15/25 00:00 Last Admin: 02/14/25 00:25 Dose: Not Given Morphine Sulfate (Morphine Sulfate (*Crx) 2 Mg/Ml Inj) 2 mg IV PUSH Q4H PRN PRN Reason: Pain Rated 7-10 Last Admin: 02/14/25 09:19 Dose: 2 mg Sodium Hypochlorite (Sod Hypochlorite 1/4 Strength 473 Ml) 1 applic TOPICAL Q12HR BINA Last Admin: 02/13/25 20:49 Dose: 1 applic Transfer Discharge Sum: Hosp Hospital Course Hospital course: Jose Gonzalez is an 85-year-old male patient [place]orese only speaking with a history of diabetes hypertension hyperlipidemia who lives at home with family is admitted to the hospital for necrotic left great toe with gangrenous diabetic foot infection. Patient reports that about a month ago he tried to remove part of the toenail and since then he has had increased swelling pain and eventually color change that has continued to worsen steadily. Patient reported to nursing staff that blood sugar has been under control. Patient and family are not aware of what medications patient takes but he reportedly gets a pill for hypertension, a pill for hyperlipidemia, and a pill for diabetes at [facility] in [place]. No one knows the name or dosage of the medications. Lab work showed white blood cell count of 10.2, CRP 5.1, ESR 97 and procalcitonin 0.1. Hemoglobin A1c was 6.4 and creatinine clearance of 41 with estimated GFR greater than 60. Patient has no prior labs on file for comparison. Blood cultures have been drawn and are pending. Patient was initiated on cefepime Flagyl and vancomycin in the emergency department which will be continued. General surgery was consulted by the emergency department, Dr. Arreola will see patient tomorrow. Expected patient to go to OR for partial or full left foot amputation. Poor vascular flow likely due to history of DM, HTN and HLD. IV cefepime, metronidazole and vancomycin started in ER and continued. Labs were monitored. Painful portions of foot wound kept clean and pain medication ordered. Originally anticipated plan to go to OR on 02/13/25 with general surgery but additional testing was pending. MRI ordered to assess for osteomyelitis nearby as well. CTA lower left extremity was performed, noted a single-vessel runoff to the lower calf and a lower foot on the left. Spoke with the surgeon and, they requested patient be transferred to higher level of care. Called [facility] transfer line, spoke with Dr. Barbosa -vascular surgeon at [facility], he accepts the patient as consult. Spoke to the hospitalist Candace Santana -he accepts the patient and his general med admission for diagnosis acute limb ischemia. Patient was updated on transfer and he was agreeable to this plan. Patient Condition: Stable Time Spent with Patient Time attestation: Total time spent providing and/or coordinating transfer services: Total time spent: Greater than 30 minutes Exam Narrative: GENERAL APPEARANCE: Appears to be in no acute distress. HEAD: normocephalic atraumatic ENT: Hearing grossly intact, no nasal discharge NECK: Neck supple, trachea midline. CARDIAC: Normal S1/S2. Rhythm is regular. No murmurs, rubs, or gallops. No cyanosis or pallor. Extremities are warm and well perfused. LUNGS: Clear to auscultation without rales, rhonchi, wheezing or diminished breath sounds. Respirations even and unlabored. ABDOMEN: BS positive x 4 quadrants. Soft, nondistended, nontender. No guarding or rebound. PERIPHERAL VASCULAR: +1 blle edema. Lower extremities slightly cool. NEURO: Follows commands. No focal deficits. SKIN: Left great toe with eschar covering the medial surface with drainage from the interdigital space. There is erythema extending to the ankle. Odiferous. PSYCH: Stable, no paranoia or delusional thinking. DS: Data Data Completed and Pending Labs on day of discharge: Labs from last 24 hours 02/14/25 02/14/25 02/14/25 11:29 11:05 07:52 WBC RBC Hgb Hct MCV MCH MCHC RDW Plt Count MPV Immature Gran % (Auto) Neut % (Auto) Lymph % (Auto) [place] % (Auto) Eos % (Auto) Baso % (Auto) Lymph # (Auto) [place] # (Auto) Eos # (Auto) Baso # (Auto) Abs Immat Gran (auto) Absolute Neuts (auto) Absolute Nucleated RBC Nucleated RBC % ESR PT 16.0 H INR 1.3 APTT 144.6 H Sodium Potassium Chloride Carbon Dioxide Anion Gap BUN Creatinine Estim Creat Clear Calc Estimated GFR Glucose POC Capillary Glucose 87 88 Calcium Phosphorus Magnesium Total Bilirubin AST ALT Alkaline Phosphatase C-Reactive Protein Total Protein Albumin Procalcitonin 02/14/25 02/13/25 02/13/25 03:56 19:52 16:52 WBC 10.6 H RBC 4.05 L Hgb 12.0 L Hct 36.6 L MCV 90.4 MCH 29.6 MCHC 32.8 RDW 12.9 Plt Count 335 MPV 8.1 Immature Gran % (Auto) 0.4 Neut % (Auto) 70.3 Lymph % (Auto) 16.2 L Mon[place] % (Auto) 7.9 Eos % (Auto) 4.5 H Baso % (Auto) 0.7 Lymph # (Auto) 1.71 [place] # (Auto) 0.8 H Eos # (Auto) 0.5 H Baso # (Auto) 0.1 Abs Immat Gran (auto) 0.04 H Absolute Neuts (auto) 7.4 H Absolute Nucleated RBC 0.000 Nucleated RBC % 0.0 ESR 117 H PT 16.2 H INR 1.3 APTT 75.2 H Sodium 139 Potassium 4.2 Chloride 104 Carbon Dioxide 26 Anion Gap 9 BUN 14 Creatinine 1.12 Estim Creat Clear Calc 42 Estimated GFR > 60 Glucose 83 POC Capillary Glucose 122 H 86 Calcium 8.9 Phosphorus 2.9 Magnesium 1.8 Total Bilirubin 0.5 AST 23 ALT 19 Alkaline Phosphatase 71 C-Reactive Protein 5.7 H Total Protein 7.9 Albumin 3.7 Procalcitonin 0.2 Preliminary micro results at discharge 02/12/25 16:21 Blood Culture - Preliminary Blood 02/12/25 16:25 Blood Culture - Preliminary Blood Imaging Radiologist's impression: ADDENDUMPlease utilize the addendum as the complete report for this patient. CLINICAL INDICATION: Peripheral arterial disease. COMPARISON: None. TECHNIQUE: Computed tomography angiography (CTA) of the bilateral iliac arteries with left lower extremity runoff was performed with 100 mL Omnipaque-350 intravenous contrast timed to evaluate the abdominal aorta, mesenteric and peripheral lower extremity vasculature. Coronal maximum intensity projection 3D-reconstructions were created by the technologist. The dose-length product (DLP) was 462.93 mGy-cm. Automated exposure control and iterative reconstruction technique were employed. FINDINGS/OBSERVATIONS: Gastrointestinal tract: Colonic diverticulosis within the sigmoid colon. VASCULAR: The left external iliac artery is patent without calcified atherosclerosis within the pelvis. The left internal iliac artery is diminutive in caliber and demonstrates significant calcified atherosclerotic disease. The left common femoral artery is patent without aneurysmal dilatation or significant stenosis. The left profunda femoral artery is patent at its origin and in the thigh. The left superficial femoral artery is diminutive at its origin, and occluded just after its takeoff with multiple collaterals within the proximal and mid thigh. A superficial femoral artery stent is identified, without demonstrable flow. Reconstitution distal to the level of the femoral popliteal graft via geniculate collaterals in the knee and distal thigh. Single vessel runoff is identified within the left calf as the anterior tibial artery which is occluded approximately 10.6 cm above the talus. Reconstitution of the posterior tibial artery at the level of the insertion of the Achilles tendon which provides distal flow into the left foot. Early filling of the venous system is detected peripherally, as well as what was originally thought to represent the dorsalis pedis artery actually represents superficial venous system in the foot has its extends retrograde as the small saphenous and the greater saphenous veins into the groin. Pelvic structures: The bladder is only minimally distended, and otherwise unremarkable. The prostate gland is enlarged and heterogeneous. IMPRESSION: No significant left-sided inflow disease (the internal iliac artery and common femoral artery are both patent). Complete occlusion of the left SFA just beyond its origin, as well as the superficial femoral artery stent. Single vessel runoff into the left calf with unnamed single vessel runoff into the left foot. EXAMINATION: US venous doppler [facility] DATE: 02/13/2025 21:46 INDICATION: lower extremity edema, pain, and swelling. TECHNIQUE: Grayscale images without and with compression and Doppler images of the bilateral lower extremity veins were obtained. COMPARISON: None FINDINGS: Exam limited by significant pain experienced during the examination. The peroneal and posterior tibial veins were noncompressible and no flow was detected. The right common femoral vein, profunda (deep) femoral vein, femoral vein, popliteal vein, gastrocnemius vein, and greater saphenous vein are patent. The peroneal and posterior tibial veins are noncompressible and no flow is detected. The left common femoral vein, profunda (deep) femoral vein, femoral vein, popliteal vein,, gastrocnemius vein, and greater saphenous vein are patent. 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 Recommend CT angiography of the left lower extremity for further evaluation. Results reported telephonically to Cm Phillips RN by Dr. Morris at 10:14 PM on 02/13/2025. EXAM: XR foot LT min 3V DATE: 02/12/2025 16:05 HISTORY: Gangrenous toes, 1st 2nd toe. . COMPARISON: None available. FINDINGS: Normal mineralization. No fracture or dislocation. No lytic or blastic lesion. Joint spaces are maintained. No erosion or periosteal change. Soft tissue defect over the tip of the great toe. IMPRESSION: No acute osseous finding in the left foot.
[2025-02-14] MEDS: SOD HYPOCHLORITE 1/4 STRENGTH 473 ML 1 APPLIC TOPICAL (17:45)
--- NOTE | 2025-02-14 18:35 | WPCACHO ---
Situation Room: 3 Med Surg Room 315 Bed: 02 Reason for Visit: diabetic foot ulcer Primary Language: Pakistani Preferred Language for Healthcare Information: Pashto Living Arrangement: With Other Family With Spouse Contact: Ministerio Mathews/Emergency Contact/[phone]/Nephew Admitting: Sarahi Payne MD Attending: Sarahi Payne MD Primary: Marvin Hill MD Referring: Background Triage Note: Pt to ED with family c/o L great toe pain x 1 month. Started after toe nail fell off. Toe is black, gangrenous. Pt is diabetic. Denies fevers. Assessment New observations/notes/concerns this shift: Recommendations Patient transferred to [facility] for higher level of care via [facility] transfer. Report called to MELVIN Acevedo. Pt will be going to room 826. Pt spouse and niece updated at bedside. Code Status 02/12/25 17:34 Code Status Order Resuscitation Status: Full Code Most Recent Vital Signs Temperature 98.1 F 02/14/25 14:00 Pulse Rate 71 02/14/25 14:00 Respiratory Rate 18 02/14/25 14:00 Pulse Oximetry 100 02/14/25 14:00 Blood Pressure 145/62 H 02/14/25 14:00 Blood Pressure Mean 89 02/14/25 14:00 Blood Pressure Position Supine 02/14/25 14:00 Oxygen Delivery Room Air 02/14/25 08:00 Weight 66.3 kg 02/12/25 19:50 POC Glucose 02/13/25 02/14/25 02/14/25 19:52 07:52 11:29 POC Capillary Glucose 122 H 88 87 02/14/25 16:23 POC Capillary Glucose 83 Precautions Precautions Moderate/High Risk Fall 02/14/25 08:00 Precautions Precautions Moderate/High Risk Fall 02/13/25 20:00 Precautions Total Fall Risk Score 9 02/14/25 08:00 Total Fall Risk Score 9 02/13/25 20:00 Fall Risk Level Moderate Risk 02/14/25 08:00 Fall Risk Level Moderate Risk 02/13/25 20:00 Patient Mobility Level Level 4A - Contact 02/14/25 08:00 Independent - Patient to move and transfer with staff assist due to Fall Risk. Patient Mobility Level Level 4A - Contact 02/13/25 20:00 Independent - Patient to move and transfer with staff assist due to Fall Risk. IV Insertion/Site IV Insertion Date [Peripheral 02/12/25 02/13/25 08:00 Access Right Forearm] IV Insertion Date [Peripheral 02/12/25 02/12/25 16:28 Access Left Distal Forearm] Neurology Level of Consciousness Alert 02/14/25 08:00 Respiratory Oxygen Delivery Room Air 02/14/25 08:00 Respiratory Rate 18 02/14/25 14:00 Pulse Oximetry 100 02/14/25 14:00 Cardiology Pulse Rate 71 02/14/25 14:00 Edema Type [Bilateral Foot/ Pitting 02/14/25 08:00 Feet] Edema Degree [Bilateral Foot/ 3+ (4-6 mm) 02/14/25 08:00 Feet] GI Gastrointestinal Symptoms Appetite Changes 02/14/25 08:00 Description Flat,Soft,Non-Tender 02/14/25 08:00 Date of Last Bowel Movement 02/11/25 02/12/25 19:50 Feeding Ability Feeds Self 02/14/25 17:30 Diet Type (Select All that Carbohydrate Consistent Diet 02/14/25 17:09 Apply) Liquid Type Thin (0) 02/14/25 17:09 Wound Periwound (Surrounding Tissue) Ecchymotic 02/14/25 17:30 [Left Toe, 1st Ulcer, Diabetic] Drainage Amount [Left Toe, 1st Scant 02/14/25 17:30 Ulcer, Diabetic] Drainage Description (Color Purulent 02/13/25 08:00 and Consistency) [Left Toe, 1st Ulcer, Diabetic] Drainage Odor [Left Toe, 1st Strong 02/14/25 17:30 Ulcer, Diabetic]
== END 2025-02-14 18:30 | disposition short-term general hospital (02) | DRG 197 ==
LOC: ANHED 17:22 → ANH3MEDSUR 18:14
PROVIDERS: Nurse Practitioner; Physician Assistant; Admitting Provider Internal Medicine; Emergency Provider Emergency Medicine; PCP Emergency Medicine; Visit Provider Nurse Practitioner Family
DX: E11.52 Type 2 diabetes mellitus with diabetic peripheral angiopathy with gangrene (principal); E11.621 Type 2 diabetes mellitus with foot ulcer; L97.528 Non-pressure chronic ulcer of other part of left foot with other specified severity; I10 Essential (primary) hypertension; E78.5 Hyperlipidemia, unspecified; I82.443 Acute embolism and thrombosis of tibial vein, bilateral; I82.453 Acute embolism and thrombosis of peroneal vein, bilateral; Z75.8 Other problems related to medical facilities and other health care
CPT/HCPCS: 36415; 71045; 73630; 73706; 80053; 80069; 80202; 81003; 82948; 83036; 83605; 83735; 84100; 84145; 85025; 85610; 85652; 85730; 86140; 87040; 87637; 93005; 93970; 96365; 96367; 96368; 99285; A9270; J0692; J1644; J1836; J2270; J3370; J7120; Q9967